=== PATIENT | male | born 1960 | race Caucasian/White ===

== ENCOUNTER 2018-02-20 18:46 | Inpatient (IN) ==
[2018-02-20] MEDS ORDERED: Aspirin 81 MG TAB.CHEW PO ONE (18:59)
[2018-02-20] MEDS ORDERED: *HR* Ticagrelor 90 MG TABLET ONE (18:59)
--- NOTE | 2018-02-20 18:59 | Emergency Department Note ---
Disposition Clinical Impression: Chest pain Qualifiers: Chest pain type: unspecified Qualified Code(s): R07.9 - Chest pain, unspecified ST elevation myocardial infarction (STEMI) Qualifiers: Involved coronary artery: unspecified coronary artery Qualified Code(s): I21.3 - ST elevation (STEMI) myocardial infarction of unspecified site Disposition: Admitted As Inpatient Condition: Fair Time of Disposition: 19:20 Chest Pain HPI - General Chief Complaint: ED Chest Pain Stated Complaint: CP/SAMIA Time Seen by Provider: 02/20/18 18:55 Source: patient Mode of arrival: wheelchair Limitations: no limitations Vital Signs Reviewed: Yes Nursing Notes Reviewed: Yes - History of Present Illness HPI Narrative: Patient is a 57-year-old male with past medical history of diabetes who presented to the ED as a STEMI alert. He presented with chest pain that started 2-3 days ago, described as a constant pressure that radiates up to his bilateral shoulders that has gotten worse over the past few hours. He does admit to pain worsening with exertion, mildly associated shortness of breath. Denies any other nausea, vomiting, fevers, sweating, abdominal pain, diarrhea. Denies any history of any previous VA or stents. Not currently on any blood thinners. Patient was brought back to room after STEMI alert was called by Dr. Wyman who reviewed EKG and noted ST elevation. Severity scale (1-10): 7 - Related Data Home Medications Medication Instructions Recorded Confirmed Atorvastatin [Lipitor] 10 mg PO HS 02/20/18 02/20/18 Insulin DETEMIR [Levemir Flextouch] 60 unit SQ HS 02/20/18 02/20/18 Metformin HCl [Glucophage] 1,000 mg PO BID 02/20/18 02/20/18 SitaGLIPtin [Januvia] 100 mg PO DAILY 02/20/18 02/20/18 Allergies Allergy/AdvReac Type Severity Reaction Status Date / Time No Known Allergies Allergy Verified 02/20/18 18:52 All systems ED: reviewed and negative except as stated. Constitutional: Denies: fever Cardiovascular: Reports: chest pain, dyspnea on exertion Respiratory: Reports: dyspnea. Denies: cough, wheezes Gastrointestinal: Denies: abdominal pain, nausea, vomiting, diarrhea Genitourinary: Denies: urgency, dysuria, frequency Musculoskeletal: Denies: back pain Integumentary: Denies: rash Neurological: Denies: headache, weakness, numbness, paresthesias Chest Pain PMH - Past Medical History Medical history: Reports: diabetes Psychiatric history: Reports: no psych history - Social History Smoking Status: Current every day smoker Alcohol use: Reports: none Drug use: Reports: none Physical Exam - General Limitations: no limitations General appearance: alert, in no apparent distress - Head Head exam: atraumatic, normocephalic, normal inspection - Eye Eye exam: Present: normal appearance, PERRL, EOMI - ENT ENT exam: normal exam, normal oropharynx, mucous membranes moist - Neck Neck exam: Present: normal inspection, full ROM, trachea midline - Chest Chest inspection: Present: normal inspection, symmetric chest wall rise - Respiratory Respiratory exam: Present: normal lung sounds bilaterally - Cardiovascular Cardiovascular exam: Present: normal rhythm, tachycardia, normal heart sounds - Abdominal Exam Abdominal exam: Present: soft, Non-Tender. Absent: tenderness, distention, guarding, rebound, rigidity - Extremities Exam Extremities exam: Present: normal inspection, full ROM. Absent: tenderness, pedal edema - Neurological Exam Neurological exam: Present: alert, oriented X3 - Psychiatric Psychiatric exam: Present: normal affect, normal mood - Skin Skin exam: Present: warm, dry, intact, normal color Course Course Narrative: Mildly tachycardic. Otherwise, the rest of the vitals were within normal limits. EKG review showed: 02/20/2018 at 18:52. Sinus tachycardia. Rate 101. NV 163. QRS 86. QTC 368. Acute ST elevation in lead 1, 2, aVL, V1 through V6. No ST elevation in lead 3 or aVF. NV depression in lead 1, 2. Normal axis. + STEMI anterolateral. Crash cart placed at bedside, pads placed on patient. I talked with retort press operator, Dr. Ofelia Sawyer, she requested that the EKG be faxed to her for review. She called me back a few minutes later and agrees that this is STEMI criteria. Patient was given Brilinta 180 and heparin. Patient stated that he had already taken aspirin 325 mg at home prior to coming in. Patient was transported to [facility] Account Representative for acute intervention. Patient was stable, stable vitals prior to this transfer to the Entry Level Account Representative. Vital Signs Temperature 97.7 F 02/20/18 18:49 Pulse Rate 104 02/20/18 18:49 Respiratory Rate 16 02/20/18 18:49 Blood Pressure 111/66 02/20/18 18:49 O2 Sat by Pulse Oximetry 99 02/20/18 18:49 Temperature 98.8 F 02/21/18 00:18 Pulse Rate 88 02/21/18 01:00 Respiratory Rate 18 02/21/18 01:00 Blood Pressure 99/65 02/21/18 01:00 O2 Sat by Pulse Oximetry 94 02/21/18 01:00 Oxygen Delivery Oxygen Delivery Room Air Chest Pain - MDM Narrative Medical decision making narrative: Mildly tachycardic. Otherwise, the rest of the vitals were within normal limits. EKG review showed: 02/20/2018 at 18:52. Sinus tachycardia. Rate 101. NV 163. QRS 86. QTC 368. Acute ST elevation in lead 1, 2, aVL, V1 through V6. No ST elevation in lead 3 or aVF. NV depression in lead 1, 2. Normal axis. + STEMI anterolateral. Crash cart placed at bedside, pads placed on patient. I talked with retort press operator, Dr. Ofelia Sawyer, she requested that the EKG be faxed to her for review. She called me back a few minutes later and agrees that this is STEMI criteria. Patient was given Brilinta 180 and heparin. Patient stated that he had already taken aspirin 325 mg at home prior to coming in. Patient was transported to Entry Level Account Representative for acute intervention. Patient was stable, stable vitals prior to this transfer to the Entry Level Account Representative. - Medical Records Medical records reviewed: Yes I reviewed the patient's medical records. - Lab Data Lab results reviewed: Yes I reviewed the patient's lab results. Result diagrams: 02/20/18 19:01 02/20/18 19:01 Lab Results 02/20/18 02/20/18 02/20/18 Range/Units 19:01 19:01 19:01 WBC 17.4 H (4.3-11.1) K/mcL RBC 4.85 (4.19-5.50) M/mcL Hgb 15.1 (12.9-16.9) g/dL Hct 43.6 (37.5-50.1) % MCV 89.9 (83.0-100.0) fL MCH 31.1 (28.0-33.3) pg MCHC 34.6 (31.6-35.5) g/dL RDW 12.7 (11.5-14.5) % Plt Count 176 (140-400) K/mcL MPV 11.6 (9.4-12.4) fL Immature Gran % 0.6 (0-4) % Seg Neutrophils % 80.5 % Lymphocytes % 8.2 % Monocytes % 10.4 % Eosinophils % 0.1 % Basophils % 0.2 % Neutrophils # 14.0 H (1.6-8.9) K/mcL Lymphocytes # 1.4 (0.6-4.6) K/mcL Monocytes # 1.8 H (0.0-1.3) K/mcL Eosinophils # 0.0 (0.0-0.6) K/mcL Basophils # 0.0 (0.0-0.2) K/mcL PT 13.7 H (9.4-12.1) Seconds INR 1.3 APTT 29.0 (26.0-36.0) Seconds Sodium 131 L (136-145) mEq/L Potassium 4.2 (3.5-5.1) mEq/L Chloride 97 L (98-107) mEq/L Carbon Dioxide 23 (23-29) mEq/L BUN 25 H (6-20) mg/dL Creatinine 1.31 H (0.70-1.30) mg/dL Est GFR ( Amer) > 60 (> 60) Est GFR (Non-Af Amer) 56 L (> 60) BUN/Creatinine Ratio 19 (6-26) Glucose 403 H (70-105) mg/dL Est Mean Plasma Glucose mg/dl Hemoglobin A1c ( - 5.6) % Calculated Osmolality 293 (280-300) Calcium 9.3 (8.6-10.3) mg/dL Magnesium 1.6 (1.6-2.6) mg/dL Troponin I 41.16 H* (< 0.04) ng/mL 02/20/18 Range/Units 19:01 WBC (4.3-11.1) K/mcL RBC (4.19-5.50) M/mcL Hgb (12.9-16.9) g/dL Hct (37.5-50.1) % MCV (83.0-100.0) fL MCH (28.0-33.3) pg MCHC (31.6-35.5) g/dL RDW (11.5-14.5) % Plt Count (140-400) K/mcL MPV (9.4-12.4) fL Immature Gran % (0-4) % Seg Neutrophils % % Lymphocytes % % Monocytes % % Eosinophils % % Basophils % % Neutrophils # (1.6-8.9) K/mcL Lymphocytes # (0.6-4.6) K/mcL Monocytes # (0.0-1.3) K/mcL Eosinophils # (0.0-0.6) K/mcL Basophils # (0.0-0.2) K/mcL PT (9.4-12.1) Seconds INR APTT (26.0-36.0) Seconds Sodium (136-145) mEq/L Potassium (3.5-5.1) mEq/L Chloride (98-107) mEq/L Carbon Dioxide (23-29) mEq/L BUN (6-20) mg/dL Creatinine (0.70-1.30) mg/dL Est GFR ( Amer) (> 60) Est GFR (Non-Af Amer) (> 60) BUN/Creatinine Ratio (6-26) Glucose (70-105) mg/dL Est Mean Plasma Glucose 246 mg/dl Hemoglobin A1c 10.2 H ( - 5.6) % Calculated Osmolality (280-300) Calcium (8.6-10.3) mg/dL Magnesium (1.6-2.6) mg/dL Troponin I (< 0.04) ng/mL - Radiology Data Radiology results reviewed: Yes I reviewed the patient's radiology results. Chest X-Ray 02/20/18 18:59 IMPRESSION: No acute process. D/ / Primitivo Reed MD / Primitivo Reed MD Interpreting Provider: Primitivo Reed MD - EKG Data EKG attestation: Yes I reviewed and interpreted this EKG. EKG results narrative: 02/20/2018 at 18:52. Sinus tachycardia. Rate 101. NV 163. QRS 86. QTC 368. Acute ST elevation in lead 1, 2, aVL, V1 through V6. No ST elevation in lead 3 or aVF. NV depression in lead 1, 2. Normal axis. + STEMI anterolateral. Attestation Statement - Attestation Attestation: I, Nilesh Mcgregor DO, examined this patient [id number] and my medical decision-making was reviewed with Dr. Tr Burt, Resident Physician. I agree with the documented findings, disposition and treatment plan as described except to the extent set forth below. Please see my progress notes for details.
[2018-02-20] MEDS ORDERED: Aspirin 81 MG TAB.CHEW ONE (19:00)
[2018-02-20] MEDS ORDERED: *HR* Heparin 5,000 UNIT/ML VIAL ONE (19:00)
[2018-02-20] MEDS ORDERED: 0.9 % Sodium Chloride 1,000 ML ONE ×3 (19:00→21:46)
[2018-02-20] MEDS ORDERED: *HR* Heparin 5,000 UNIT/ML VIAL IVP ONE (19:04)
[2018-02-20] MEDS ORDERED: *HR* Heparin 5,000 UNIT/ML VIAL IVP PRN ×2 (19:04)
[2018-02-20] MEDS ORDERED: *HR* Ticagrelor 90 MG TABLET PO ONE (19:05)
[2018-02-20] MEDS ORDERED: Heparin 1,000 UNITS/500 mL 500 ML ONE (19:07)
[2018-02-20] MEDS ORDERED: Nitroglycerin 1,000 MCG/10 ML VIAL IV ONE ×2 (19:07→19:59)
[2018-02-20] MEDS ORDERED: *HR* Heparin 10,000 UNIT/10 ML VIAL ONE (19:07)
[2018-02-20] MEDS ORDERED: ISOVUE-370 200 ML INFUS..BTL IV ONE (19:07)
[2018-02-20] MEDS ORDERED: *HR* FentaNYL (PF) 100 MCG/2 ML VIAL ONE (19:08)
[2018-02-20] MEDS ORDERED: *HR* Midazolam HCl 2 MG/2 ML VIAL ONE (19:08)
[2018-02-20] MEDS ORDERED: *HR* Bivalirudin 250 MG VIAL IVC ONE (19:08)
[2018-02-20 19:14] LABS: Basophils % 0.2 %; Eosinophils % 0.1 %; Hematocrit 43.6 % (37.5-50.1); Hemoglobin 15.1 g/dL (12.9-16.9); Immature Granulocytes % 0.6 % (0-4); Lymphocytes # 1.4 K/mcL (0.6-4.6); Lymphocytes % 8.2 %; Mean Corpuscular HGB Conc 34.6 g/dL (31.6-35.5); Mean Corpuscular Hemoglobin 31.1 pg (28.0-33.3); Mean Corpuscular Volume 89.9 fL (83.0-100.0); Mean Platelet Volume 11.6 fL (9.4-12.4); Monocytes # 1.8 K/mcL (0.0-1.3); Monocytes % 10.4 %; Platelet Count 176 K/mcL (140-400); Red Blood Count 4.85 M/mcL (4.19-5.50); Red Cell Distribution Width 12.7 % (11.5-14.5); Segmented Neutrophils % 80.5 %
[2018-02-20] MEDS ORDERED: Heparin 25,000 UNIT/500 ML D5W 25,000 UNIT/500 ML BAG IVC SCH (19:15)
--- NOTE | 2018-02-20 19:19 | Emergency Department Note ---
Disposition Clinical Impression: Chest pain, ST elevation myocardial infarction (STEMI) Disposition: Admitted As Inpatient Condition: Fair Forms: ED Satisfaction Letter Time of Disposition: 19:20 General Adult HPI - General Chief complaint: ED Chest Pain Stated complaint: CP/SAMIA Time Seen by Provider: 02/20/18 18:55 Source: patient Mode of arrival: wheelchair Limitations: no limitations - History of Present Illness Pain Scale: 7 - Related Data Home Medications Medication Instructions Recorded Confirmed Atorvastatin [Lipitor] 10 mg PO HS 02/20/18 02/20/18 Insulin DETEMIR [Levemir Flextouch] 60 unit SQ HS 02/20/18 02/20/18 Metformin HCl [Glucophage] 1,000 mg PO BID 02/20/18 02/20/18 SitaGLIPtin [Januvia] 100 mg PO DAILY 02/20/18 02/20/18 Allergies Allergy/AdvReac Type Severity Reaction Status Date / Time No Known Allergies Allergy Verified 02/20/18 18:52 Past Medical History - Past Medical History Medical history: Reports: diabetes Psychiatric history: Reports: no psych history - Social History Smoking Status: Current every day smoker Alcohol use: Reports: none Drug use: Reports: none Physical Exam - General Limitations: no limitations General appearance: alert, in no apparent distress Course Vital Signs Temperature 97.7 F 02/20/18 18:49 Pulse Rate 104 02/20/18 18:49 Respiratory Rate 16 02/20/18 18:49 Blood Pressure 111/66 02/20/18 18:49 O2 Sat by Pulse Oximetry 99 02/20/18 18:49 Temperature 97.7 F 02/20/18 18:49 Pulse Rate 97 02/20/18 19:08 Respiratory Rate 16 02/20/18 19:08 Blood Pressure 121/66 02/20/18 19:08 O2 Sat by Pulse Oximetry 96 02/20/18 19:08 Oxygen Delivery Oxygen Delivery Room Air Medical Decision Making - Lab Data Result diagrams: 02/20/18 19:01 Lab Results 02/20/18 Range/Units 19:01 WBC 17.4 H (4.3-11.1) K/mcL RBC 4.85 (4.19-5.50) M/mcL Hgb 15.1 (12.9-16.9) g/dL Hct 43.6 (37.5-50.1) % MCV 89.9 (83.0-100.0) fL MCH 31.1 (28.0-33.3) pg MCHC 34.6 (31.6-35.5) g/dL RDW 12.7 (11.5-14.5) % Plt Count 176 (140-400) K/mcL MPV 11.6 (9.4-12.4) fL Immature Gran % 0.6 (0-4) % Seg Neutrophils % 80.5 % Lymphocytes % 8.2 % Monocytes % 10.4 % Eosinophils % 0.1 % Basophils % 0.2 % Neutrophils # 14.0 H (1.6-8.9) K/mcL Lymphocytes # 1.4 (0.6-4.6) K/mcL Monocytes # 1.8 H (0.0-1.3) K/mcL Eosinophils # 0.0 (0.0-0.6) K/mcL Basophils # 0.0 (0.0-0.2) K/mcL Attestation Statement - Attestation Attestation: I, Nilesh Mcgregor DO, examined this patient [id number] and my medical decision-making was reviewed with Dr. Tr Burt, Resident Physician. I agree with the documented findings, disposition and treatment plan as described except to the extent set forth below. Please see my progress notes for details. 57-year-old male presents to the emergency room 2 days worth of chest pain. Symptoms of been on and off. They never fully gone away but they had different events with a been acutely worse. Patient had EKG collect in the triage process. It is consistent with a ST segment elevation myocardial infarction. The reviewing physician called a STEMI at that time. The EKG was reviewed with the on-call needle loom operator Dr. Ofelia Sawyer. She agreed with the diagnosis. Patient had immediate evaluation with chest x-ray and screening physical exam along with confirmation that he does not have any history of melanoma GI bleed or being on any blood thinners at this point. Patient does not have any signs of widened mediastinum. IV access was obtained 2 peripheral IVs. Patient also was given brilinta and heparin. Patient had a screening labs ordered at this time. Patient was transported to the catheterization lab at this point under the care of the catheterization team. Vital signs are stable patient is in no specific distress. Intervention to be completed this time. No critical care applied. See detailed documentation of the physical exam, medical intervention, medical decision-making and disposition in the resident physician' s note.
[2018-02-20 19:24] LABS: INR 1.3; Prothrombin Time 13.7 Seconds (9.4-12.1)
[2018-02-20 19:39] LABS: BUN/Creatinine Ratio 19 (6-26); Blood Urea Nitrogen 25 mg/dL (6-20); Calcium 9.3 mg/dL (8.6-10.3); Carbon Dioxide 23 mEq/L (23-29); Chloride 97 mEq/L (98-107); Glucose 403 mg/dL (70-105); Magnesium 1.6 mg/dL (1.6-2.6); Osmolality,Calculated 293 (280-300); Potassium 4.2 mEq/L (3.5-5.1); Sodium 131 mEq/L (136-145); eGFR For African Americans > 60 (> 60); eGFR For Non-African Americans 56 (> 60)
[2018-02-20 19:42] LABS: Troponin I 41.16 ng/mL (< 0.04)
[2018-02-20] MEDS ORDERED: Ondansetron 4 MG/2 ML VIAL IVP PRN (20:31)
[2018-02-20] MEDS ORDERED: Furosemide 40 MG/4 ML VIAL IVP ONE (20:31)
[2018-02-20] MEDS ORDERED: Nitroglycerin 0.4 MG TAB.SUBL SL PRN (20:31)
[2018-02-20] MEDS ORDERED: *HR* Dextrose 50 % in Water (Syg) 50 ML SYRINGE IVP PRN (20:37)
[2018-02-20] MEDS ORDERED: Dextrose Gel 15 GM PO PRN ×2 (20:37)
[2018-02-20] MEDS ORDERED: D5% in Water 1,000 ML IVC PRN (20:37)
--- NOTE | 2018-02-20 20:39 | Invasive Diagnostic Lab Proc ---
Name: Erasto Yin Date of Study: 02/20/2018 Date: 1960 Ht: 74.0in Medical Record#: [id number] Age: 57 Wt: 198.42lb Gender: Male BSA: 2.17 Order #: [id number] BMI: 25.46 Physicians Procedure Physician: Ofelia Sawyer MD, FACC Referring MD: Referring MD: Staff Name Position [facility] Monitor 07:22 PM Elsa Angelo RN Kindergarten Paraprofessional 07:22 PM [facility], [place] RT (R) Scrub 07:22 PM Indications Indication STEMI Procedures Performed Procedure L HRT ARTERY/VENTRICLE ANGIO PRQ CARD QUINTIN STENT W/ANGIO 1 VSL Pre-Procedure Checklist Informed consent is complete signed and on chart. H&P is on chart. ID band is on and ID verified with patient. Patient NPO for procedure The procedure was described for the patient and questions were answered. Blood Pressure: 121/66 ECG is on chart. Rhythm: Sinus Tachycardia Plan of Care Patient will tolerate the procedure without complications. Adequate level of comfort will be maintained. Hemodynamics will remain stable Patient will recover from procedure without complications. Respiratory function will be maintained. Cardiac rhythm will remain stable. Patient temperature will be maintained. Patient and/or family have verbalized understanding of the procedure. Patient Education Chief Complaint/Reason for Test: Cardiac Cath Developmental Category: Adult (18-64 years) Developmentally Appropriate for Age: Yes Learning Barriers: None Education Needs: Plan of Care Education Method: Verbal Information Taught: Cardiac Cath Educational Evaluation: Able to repeat information Intravenous Access Time IV Size Location DC'd Fluid/Drip Rate Units RN 07:38 PM 16g Lt Arm Elsa Angelo RN 07:39 PM 18g 1 1/" Patent On Arrival Rt Antecubital Elsa Angelo RN Allergies No Known Allergies Vital Signs Time BP (mmHg) HR (bpm) O2 Sat. RR (bpm) LOC 07:29 PM / % 5 = Fully awake and oriented or at pre-proc level 07:33 PM / % 5 = Fully awake and oriented or at pre-proc level 07:33 PM / % 4 = Oriented but drowsy 07:49 PM / % 4 = Oriented but drowsy 07:29 PM 143 / 76 96 97 % 12 07:33 PM 118 / 68 109 93 % 24 07:38 PM 121 / 64 99 93 % 31 07:43 PM 121 / 65 94 97 % 25 07:47 PM 122 / 70 94 97 % 23 07:53 PM 110 / 62 96 94 % 19 07:58 PM 128 / 65 100 95 % 21 08:03 PM 128 / 69 98 95 % 23 08:08 PM 135 / 77 99 95 % 12 08:13 PM 133 / 75 100 96 % 23 Procedural Medications Time Medication Dose Units Method Given By 07:29 PM Versed 2 mg Intravenous Elsa Angelo RN 07:29 PM Fentanyl 50 mcg Intravenous Elsa Angelo RN 07:30 PM Lidocaine 2% 20 ml Subcutaneous ofelia sawyer 07:36 PM Heparin 1000 units Intravenous Elsa Angelo RN 07:50 PM Nitroglycerin 200 mcg Intracoronary Ofelia Sawyer MD, FACC 07:23 PM Oxygen 4 L/min nasal cannula Elsa Angelo RN 07:51 PM Nitroglycerin 200 mcg Intracoronary Ofelia Sawyer MD, FACC 07:58 PM Nitroglycerin 200 mcg Intracoronary Ofelia Sawyer MD, FACC 08:26 PM Heparin 1000 units Intravenous Elsa Angelo RN ASA Classification: CLASS II- Mild systemic disease (i.e. well-controlled diabetes, hypertension, asthma, cigarette smoking) Michael Score Preprocedure Postprocedure Activity 2- Moves 4 extremities sustained head lift Activity 2- Moves 4 extremities sustained head lift Circulation 2- SBP +/= 20 points of pre-anesthetic level Circulation 2- SBP +/= 20 points of pre-anesthetic level Consciousness 2- Awake and alert oriented x 3 Consciousness 2- Awake and alert oriented x 3 O2 Saturation 2- Able to maintain O2 satruation of 92% on room air O2 Saturation 2- Able to maintain O2 satruation of 92% on room air Respiratory 2- Able to deep breathe and cough well Respiratory 2- Able to deep breathe and cough well Total Score 10 Total Score 10 Contrast Agent: Isovue Diagnostic Contrast: 220 ml Total Contrast: 220 ml Fluoro Dose: 782 mGy Activated Clotting Time Time Seconds to Clot 07:35 PM 231 07:55 PM 278 08:14 PM 202 Procedure Log Time Note Enter By 07:22 PM Pt arrived to sugar laboratory assistant 2 at 19:22 carlos 07:22 PM Deborah Samson RN Position: Monitor Time in: 19:22 ky: PM Elsa Angelo RN Position: Kindergarten Paraprofessional Time in: dspzakiya: PM [place] Canela RT (R) Position: Scrub Time in: dsp: PM Patient charges- Angio tray pack, Navilyst 3mm J, Pulse Oximetry and ACIST tubing and transducer dspell: PM Case Delayed No dspell PM Hair removed from procedure site in procedure lab using clippers. Bilateral groin prepped with Chloraprep by [place] Canela RT (R), then patient was draped. Skin intact. dsp: PM Physican paged/called :. dspell: PM Physican responded and notified patient is ready dspell: PM Physician arrived : dspell: PM Meet and greet completed dspell: PM Sign in performed according to hospital policy. dspell: PM Sign in performed according to hospital policy. : PM Procedure start dsp: PM Time: Oxygen on at 4 L/min per nasal cannula by Elsa Angelo RN tsouanson 07: PM CathStat : PM Vitals capture started with the following parameters, Patient=Adult, Interval=5 min, Initial Fsevjsbg=967 mmHg, Deflation Rate=3 mmHg, Cuff placed on Right Arm 07: PM HR=96 bpm, LZMC=337/76 mmhg, SpO2=97.0 %, Resp=12 B/min : PM Recorded ECG: HR=96 Condition=Condition 1 : PM Time: Versed 2 mg Intravenous Given by Elsa Angelo RN PM Time: Fentanyl 50 mcg Intravenous Given by Elsa Angelo RN PM Time: Patient comfortable and pain free: Yes dsp PM Time: LOC: 5 = Fully awake and oriented or at pre-proc level dspell: PM Pressure channel 1 zeroed. 07:30 PM Clinical Presentation: STEMI or equivalent dspell:30 PM Time out performed according to hospital policy dspellman 07:30 PM Time: 19:30 20 ml Lidocaine 2% to right groin Subcutaneous Given by ofelia sawyer 07:30 PM Micro-Introducer Kit utilized for sheath placement 07:30 PM Access obtained by percutaneous puncture. 6Fr 10cm [facility] [place] sheath placed in right Femoral artery. [id number] 07:30 PM 0.035 145cm Navilyst 3mmJ wire [id number] 07:30 PM Inflation device was opened. 07:31 PM 6Fr XB LAD 3.5 [place] Bright-Tip guide catheter was used to cannulate the PCI vessel successfully. reused? No :31 PM j wire removed : PM 0.035 145cm VSI [place]-Torque wire [id number] 07:32 PM Recorded Pressure: Ao, HR=95, Condition=Condition 1 (Aorta) Ao 72/31/48 07:32 PM wire removed :32 PM LCA angiography performed in multiple views. 07:33 PM YY=440 bpm, CCXE=645/68 mmhg, SpO2=93.0 %, Resp=24 B/min 07:33 PM Time: 19:33 Patient comfortable and pain free: Yes :33 PM Time: 19:33LOC: 5 = Fully awake and oriented or at pre-proc level 07:34 PM Lesion found in Proximal LAD. Pre Stenosis: 100 Pre MARII Flow: 0: No Flow/No perfusion 07:34 PM Proximal Left Anterior Descending Coronary Artery with 100% stenosis. If graft is supplying this territory, 0 % stenosis. 07:34 PM .014 Prowater 180cm guide wire across target lesion- successful. reused? No. In First Diagonal 07:34 PM Recorded Pressure: Ao, HR=99, Condition=Condition 1 (Aorta) Ao 93/54/72 07:36 PM At 19:35 the ACT was 231 seconds. 07:36 PM 2.0 mm x 15 mm Emerge Monorail balloon across target lesion- successful. reused? No mm 07:36 PM Time: 19:36 Heparin 1000 units Intravenous Given by Elsa Angelo RN tsoummers 07:37 PM Balloon inflated @ 8 gaby for 20 seconds tsoummers 07:38 PM Balloon inflated @ 8 gaby for 20 seconds tsoummers 07:38 PM HR=99 bpm, THZR=794/64 mmhg, SpO2=93.0 %, Resp=31 B/min 07:38 PM Balloon inflated @ 12 gaby for 20 seconds tsoummers 07:39 PM Recorded Pressure: Ao, HR=96, Condition=Condition 1 (Aorta) Ao 89/54/72 07:42 PM Balloon catheter removed intact. tsoummers 07:42 PM .014 PT Graphix 182cm guide wire across target lesion- successful. reused? No. in the LAD tsoummers 07:43 PM HR=94 bpm, GFEQ=059/65 mmhg, SpO2=97.0 %, Resp=25 B/min 07:44 PM 2.0 mm x 15 mm Emerge Monorail balloon across target lesion- successful. reused? No. Over the PT graphix guide wire. tsoummers 07:45 PM Balloon inflated @ 8 gaby for 20 seconds tsoummers 07:46 PM Balloon inflated @ 12 gaby for 20 seconds tsoummers 07:47 PM NIBP STAT measurement started. 07:47 PM Balloon inflated @ 8 gaby for 20 seconds tsoummers 07:47 PM Balloon inflated @ 8 gaby for 20 seconds tsoummers 07:47 PM HR=94 bpm, JMCP=746/70 mmhg, SpO2=97.0 %, Resp=23 B/min 07:49 PM Balloon inflated @ 14 gaby for 20 seconds tsoummers 07:49 PM Time: 19:33LOC: 4 = Oriented but drowsy tsoummers 07:49 PM Time: 19:33 Patient comfortable and pain free: Yes tsoummers 07:49 PM Balloon catheter removed intact. tsoummers 07:50 PM Time: 19:50 Nitroglycerin 200 mcg Intracoronary Given by Ofelia Sawyer MD, [facility] tsoummchrist 07:52 PM Time: 19:51 Nitroglycerin 200 mcg Intracoronary Given by Ofelia Sawyer MD, [facility] tsoummers 07:53 PM HR=96 bpm, UHYI=744/62 mmhg, SpO2=94.0 %, Resp=19 B/min 07:54 PM 2.25mm x 20mm Synergy drug-eluting stent across target lesion- successful Lot #[id number] oumm 07:55 PM At 19:55 the ACT was 278 seconds. tsoumm 07:55 PM Prowater removed intact tsoumm 07:56 PM Stent deployed @ 11 gaby for 30 seconds tsoumm 07:57 PM Stent balloon reinflated @ 12 gaby for 15 seconds tsoumm 07:57 PM Stent delivery system removed intact. tsoummers 07:58 PM JF=685 bpm, DHJX=353/65 mmhg, SpO2=95.0 %, Resp=21 B/min 07:58 PM Time: 19:58 Nitroglycerin 200 mcg Intracoronary Given by Ofelia Sawyer MD, [facility] tsoummers 08:00 PM Guide wire removed intact. tsoumm 08:01 PM Guide catheter removed intact. tsoumm 08:02 PM Time: 19:49LOC: 4 = Oriented but drowsy tsoummers 08:03 PM Recorded Pressure: Ao, HR=98, Condition=Condition 1 (Aorta) Ao 98/60/78 08:03 PM HR=98 bpm, GUHS=401/69 mmhg, SpO2=95.0 %, Resp=23 B/min 08:03 PM 0.035 260cm Navilyst 3mmJ wire [id number] oumm 08:04 PM Time: 19:49 Patient comfortable and pain free: Yes tsoumm 08:04 PM 5Fr FR 4 catheter inserted over the wire [facility] oummchrist 08:04 PM Jwire removed tsoummchrist 08:04 PM RCA angiography performed in multiple views. tsoumm 08:05 PM Pressure channel 1 zero failed. 08:05 PM Pressure channel 1 zeroed. 08:05 PM Recorded Pressure: LV, HR=99, Condition=Condition 1 (Left Ventricle) LV 100/20/23 08:05 PM Catheter removed tsoummchrist 08:05 PM Recorded Pressure: LV, Ao, HR=99, Condition=Condition 1 (Left Ventricle) LV 95/29/30, (Aorta) Ao 105/77/91 08:06 PM 5Fr Pigtail catheter inserted over the wire [facility] 08[facility] PM Catheter selectively placed in left ventricle tsoummchrist 08:06 PM Bolus angiogram of left Ventricle complete: 8 ml/sec for a total of 24 mls tsoummers 08:06 PM [facility]ter [facility] 08:07 PM Bolus angiogram of right Femoral complete: 2 ml/sec for a total of 4 mls tsoummers 08:08 PM HR=99 bpm, XBVX=336/77 mmhg, SpO2=95.0 %, Resp=12 B/min 08:08 PM Procedure completed at 20:08 tsoummers 08:08 PM Did you address MARII flow and Dominance? Yes tsoummers 08:09 PM Sign out completed: Radiation Dose 781.83 mGy Fluoro Time: 11.4 Isovue 370 - 200ml contrast 220 ml given by Ofelia Sawyer MD, [facility]. Complications: NoneCardiac Rehab Consult needed: YesConfirmed administered medications: Yes [facility] 08:09 PM Isovue 370 - 200ml,2 Bottle(s) used. [facility] 08:09 PM Sheath left in place to be pulled on floor/holding area tsoummers 08:09 PM Estimated Blood Loss: minimal tsoummers 08:09 PM Post ECG NSR tsoummers 08:09 PM Post Blood Pressure 135/77 tsoummers 08:09 PM Information taught Cardiac Cath and PCI [facility] 08:10 PM Education needs Procedure, Plan of Care, and Responsibilities of Patient in Care tsoummers 08:10 PM Learning barriers :None [facility] 08:10 PM Education Methods Verbal [facility] 08:10 PM Education evaluation Able to repeat information [facility] 08:10 PM Site status No bleeding/hematoma - Rt Groin as reported by Sites, [place] RT (R) at 20:10 tsoummers 08:10 PM Opsite applied [facility] 08:10 PM Plavix, Effient or Brilinta given Yes. 180mg brilinta given in ED tsoummers 08:13 PM Delay to floor No tsoummers 08:13 PM Family placed in consult room. tsoummers 08:13 PM Complications: None tsoummers 08:13 PM Fluoro Time: 11.4 tsoummers 08:13 PM BS=980 bpm, MXKQ=418/75 mmhg, SpO2=96.0 %, Resp=23 B/min 08:13 PM Isovue 370 - 200ml contrast 220 ml given by Ofelia Sawyer. tsoummers 08:13 PM Radiation Dose 781.83 mGy tsoummers 08:14 PM At 20:14 the ACT was 202 seconds. tsoummers 08:17 PM Report given to Marleny GARCIA Pt taken to ICU Room #10. 20:16 tsoummers 08:17 PM Coronary Dominance: right tsoummers 08:18 PM Lesion found in Proximal RCA. Pre Stenosis: 30 Pre MARII Flow: tsoummers 08:18 PM Lesion found in Mid RCA. Pre Stenosis: 40 Pre MARII Flow: tsoummers 08:18 PM Lesion found in Distal RCA. Pre Stenosis: 30 Pre MARII Flow: tsoummers 08:18 PM Lesion found in LMCA. Pre Stenosis: 30 Pre MARII Flow: tsoummers 08:18 PM Lesion found in 1st Diagonal. Pre Stenosis: 70 Pre MARII Flow: tsoummers 08:18 PM Lesion found in Proximal Circumflex. Pre Stenosis: 40 Pre MARII Flow: tsoummers 08:19 PM Lesion found in 2nd Marginal. Pre Stenosis: 95 Pre MARII Flow: tsoummers 08:19 PM Lesion found in Right PDA. Pre Stenosis: 95 Pre MARII Flow: tsoummers 08:19 PM Left Main Coronary Artery with 30% stenosis tsoummers 08:19 PM Mid/Distal Left Anterior Descending Coronary Artery and diagonal branches with 70% stenosis. If graft is supplying this area, 0 % stenosis tsoummers 08:19 PM Circumflex, Obtuse Marginal, Left Posterior Descending, and Left Posterolateral Coronary Arteries with 95 % stenosis. If graft is supplying this area, 0 % stenosis tsoummers 08:19 PM Right Coronary, Right Posterior Descending Arteries with Right Posterolateral and Acute Marginal branches with 95 % stenosis. If graft is supplying this area, 0 % stenosis tsoummers 08:25 PM Patient out of room: 20:25 tsoummers 08:26 PM Time: 20:26 Heparin 1000 units Intravenous Given by Elsa Angelo RN tsaleahmmchrist 08:27 PM ASA Class CLASS II- Mild systemic disease (i.e. well-controlled diabetes, hypertension, asthma, cigarette smoking) tsoummers Complications Complication None Hemodynamics Pressures Site Systolic/A Wave Diastolic/V Wave Mean AO 72 31 48 AO 93 54 72 AO 89 54 72 AO 98 60 78 LV 100 20 23 LV 95 29 30 AO 105 77 91 Post Procedure Information Blood Pressure: 135/77 mmHg Rhythm: NSR Post procedural instructions were given Site Checks Time Location Status Staff Sheath In? Note 08:10 PM Rt Groin No bleeding/hematoma Sites, [place] RT (R) Pulses Updated by Deborah Samson RN on 02/20/2018 8:30:15 PM electronically signed on 02/20/2018 8:30:40 PM with status of Final
--- NOTE | 2018-02-20 20:42 | Cardiology History & Physical ---
Date of Encounter: 02/20/18 Time of Encounter: 19:15 Assessment and Plan (1) ST elevation myocardial infarction (STEMI) Current Visit: Yes Status: Acute Pt is currently experiencing acute anterolateral STEMI. Will proceed emergently to cardiac catheterization lab for LHC +/- PCI. All risks/benefits discussed by me with patient. Further recommendations pending results. The assessment and plan as outlined above was discussed with the patient and/or family members who expressed understanding and agreement. All questions were answered. Qualifiers: Qualified Code(s): I21.02 - ST elevation (STEMI) myocardial infarction involving left anterior descending coronary artery (2) Hyperlipidemia Current Visit: No Status: Chronic Statin therapy. Qualifiers: Hyperlipidemia type: unspecified Qualified Code(s): E78.5 - Hyperlipidemia , unspecified (3) Tobacco use Current Visit: Yes Status: Chronic Smoking cessation. (4) Diabetes mellitus Current Visit: No Status: Chronic Qualifiers: Diabetes mellitus type: type 2 Diabetes mellitus halfway insulin use: with manager terminal use Diabetes mellitus complication status: without complication Qualified Code(s): E11.9 - Type 2 diabetes mellitus without complications; Z79.4 - detention (current) use of insulin; Z79.4 - detention ( current) use of insulin; Z79.4 - detention (current) use of insulin; Z79.4 - detention (current) use of insulin History of Present Illness Chief complaint: chest pain HPI: Mr. Yin is a 57 year old male with DM, hyperlipidemia presents to [place] ED with c/o CP. Pt was in baseline state of health until Monday when had acute onset of SSCP radiating to neck and arms b/l. Associated with SOB. 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 Symptoms persisted throughout day on Monday and Monday. Was not able to lie flat due to dyspnea, chest pressure. Symptoms worsened today and at urging of his , presented to ED for further evaluation/tx. Upon arrival to ED, EKG performed which was consistent with acute anterolateral STEMI. Pt denies prior cardiac history, testing. 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 - Family History Father Living Status: Hx Family Cardiac Disorders: Yes Medications and Allergies Atorvastatin [Lipitor] 10 mg PO HS 02/20/18 [History] Insulin DETEMIR [Levemir Flextouch] 60 unit SQ HS 02/20/18 [History] Metformin HCl [Glucophage] 1,000 mg PO BID 02/20/18 [History] SitaGLIPtin [Januvia] 100 mg PO DAILY 02/20/18 [History] 3 Allergy/AdvReac Type Severity Reaction Status Date / Time No Known Allergies Allergy Verified 02/20/18 18:52 ROS unobtainable: other (emergency) All Systems Review: The remainder of the systems were reviewed and are negative - Cardiovascular Cardiovascular: as per HPI Physical Examination General: Other (mild distress appears uncomfortable) HEENT: Atraumatic, Normocephaly, Mucus Membranes Moist Neck: No JVD, Normal carotid pulses Cardiac: Reg Rate and Rhythm, Normal S1 and S2, No Murmur Lungs: Normal Breath Sounds, No Wheeze, Rales, Rhonchi Neuro: Alert and responsive, No focal deficits noted Abdomen: Soft, Non-Tender Skin: No rashes noted on visualized skin Musculoskeletal: No Chest Wall Tenderness Extremities: No Clubbing, No Cyanosis, No Edema, Normal Pulses Results 02/20/18 19:01 02/20/18 19:01 - EKG Interpretation EKG results cardiology: personally reviewed (as per HPI) - VTE Reasons for not Prescribing Prophylaxis: Not indicated-Anticoagulated or INR therapeutic
[2018-02-20 21:35] LABS: Estimated Average Glucose 246 mg/dl; Hemoglobin A1C 10.2 %
[2018-02-20] MEDS ORDERED: *HR* Atropine Sulfate 1 MG/10 ML SYRINGE ONE (21:46)
[2018-02-20] MEDS: Insulin LISPRO 300 UNITS/3 ML VIAL SQ SCH (22:15)
[2018-02-21 03:22] LABS: Basophils % 0.2 %; Hematocrit 39.9 % (37.5-50.1); Hemoglobin 14.1 g/dL (12.9-16.9); Immature Granulocytes % 0.6 % (0-4); Lymphocytes % 6.6 %; Mean Corpuscular HGB Conc 35.3 g/dL (31.6-35.5); Mean Corpuscular Hemoglobin 31.3 pg (28.0-33.3); Mean Corpuscular Volume 88.7 fL (83.0-100.0); Mean Platelet Volume 11.3 fL (9.4-12.4); Monocytes # 1.8 K/mcL (0.0-1.3); Monocytes % 11.2 %; Neutrophils # 12.8 K/mcL (1.6-8.9); Platelet Count 132 K/mcL (140-400); Red Cell Distribution Width 12.6 % (11.5-14.5); Segmented Neutrophils % 81.4 %
[2018-02-21 03:50] LABS: BUN/Creatinine Ratio 23 (6-26); Blood Urea Nitrogen 24 mg/dL (6-20); Calcium 8.8 mg/dL (8.6-10.3); Carbon Dioxide 22 mEq/L (23-29); Chloride 100 mEq/L (98-107); Chol/HDL Ratio 2.7 (0-4.9); Cholesterol 115 mg/dL (< 200); Glucose 343 mg/dL (70-105); HDL Cholesterol 42 mg/dL (40-59); LDL Cholesterol,Calculated 60 mg/dL (0-99); Osmolality,Calculated 290 (280-300); Potassium 4.1 mEq/L (3.5-5.1); Sodium 131 mEq/L (136-145); Triglycerides 65 mg/dL (< 150); eGFR For African Americans > 60 (> 60); eGFR For Non-African Americans > 60 (> 60)
[2018-02-21 03:59] LABS: Troponin I 46.87 ng/mL (< 0.04)
[2018-02-21] MEDS: Insulin LISPRO 300 UNITS/3 ML VIAL SQ SCH ×4 (07:54→20:47)
[2018-02-21] MEDS: *HR* SitaGLIPtin 100 MG TABLET PO SCH (07:54)
[2018-02-21] MEDS: Aspirin 81 MG TAB.CHEW PO SCH (07:55)
--- NOTE | 2018-02-21 12:46 | Cardiology Progress Note ---
Date of Encounter: 02/21/18 Time of Encounter: 08:30 Assessment and Plan (1) ST elevation myocardial infarction (STEMI) Current Visit: Yes Status: Acute S/p acute anterolateral STEMI. Troponin up to 46.86. Emergent cardiac catheterization revealed severe stenosis in the proximal LAD with thrombus. S/P PTCA and QUINTIN to pLAD. There was no complication from the procedure. Denies recurrent chest pain. No complications from right femoral access site. Importance of DAPT with asa and plavix uninterrupted for minimum of one year discussed and he voiced understanding. Continue statin and BB. Telemetry review shows SR with BBB. No VT. Avg HR 96 bpm. Check TTE. Step-down to telemetry later today. Smoking cessation discussed. Cardiac rehab ordered. 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 Doing well. Denies need for NRT currently. Discussion w patient/family: The assessment and plan as outlined above was discussed with the patient and/or family members who expressed understanding and agreement. All questions were answered. Thank you for involving us in the care of your patient. Please call with any questions. Subjective Principal diagnosis: Acute anterior NM Interval history: Mr. Yin reports he is doing well. He feels some pain when taking deep inspiration. Denies SOB. Denies orthopnea, PND or edema. Objective Vital Signs, Last 4 Hours Pulse Resp BP Pulse Ox 02/21/18 12:00 86 12 106/70 97 02/21/18 11:00 87 14 101/64 95 02/21/18 10:00 89 22 99/71 96 02/21/18 09:00 90 15 103/68 95 General: Conversant, No Apparent Distress HEENT: Atraumatic, Normocephaly, Mucus Membranes Moist Neck: No JVD, Normal carotid pulses Cardiac: Reg Rate and Rhythm, Normal S1 and S2, No Murmur Lungs: Normal Breath Sounds, No Wheeze, Rales, Rhonchi Neuro: Alert and responsive, No focal deficits noted Abdomen: Soft, Non-Tender Skin: No rashes noted on visualized skin Musculoskeletal: No Chest Wall Tenderness Extremities: No Clubbing, No Cyanosis, No Edema, Normal Pulses, Other (Right femoral access site without hematoma. ) Results 02/21/18 03:13 02/21/18 03:13 Lab Results 02/21/18 02/21/18 03:13 03:13 WBC 15.7 H Hgb 14.1 Hct 39.9 Plt Count 132 L Sodium 131 L Potassium 4.1 Chloride 100 Carbon Dioxide 22 L BUN 24 H Creatinine 1.05 Glucose 343 H Calcium 8.8 Troponin I 46.87 H* - Imaging and Cardiology Echo: pending - EKG Interpretation EKG results cardiology: personally reviewed - VTE Reasons for not Prescribing Prophylaxis: Not indicated-Anticoagulated or INR therapeutic Consult Discharge Plan - Plan Referrals: Anny Velez MD [Primary Care Provider] -
--- NOTE | 2018-02-21 18:13 | Electrocardiograph Report ---
[address] [place], [place] [address] Test Date: 2018-02-20 Pat Name: Erasto Yin Department: 109 Room: 2N05 Gender: M Program Writer: : 1960 Requested By: Ofelia Sawyer Order Number: [id number] Reading MD: Genet Manning Measurements Intervals [place] Rate: 102 P: 40 NE: 168 QRS: 72 QRSD: 83 T: 89 QT: 301 QTc: 359 Interpretive Statements SINUS TACHYCARDIA POSSIBLE LEFT ATRIAL ENLARGEMENT ANTEROSEPTAL MYOCARDIAL INFARCTION, POSSIBLY ACUTE ST ELEVATION, CONSIDER INFERIOR INJURY ACUTE [place] Electronically Signed On 02-21-2018 18:11:28 EDT by Genet Manning
--- NOTE | 2018-02-22 06:37 | Electrocardiograph Report ---
[address] [place], [place] [address] Test Date: 2018-02-20 Pat Name: Erasto Yin Department: 104 Room: [facility] Gender: M Server Manager: : 1960 Requested By: Tr Burt Order Number: [id number] Reading MD: Parish Arreola Measurements Intervals [place] Rate: 101 P: 40 [place]: 163 QRS: 70 QRSD: 86 T: 94 QT: 310 QTc: 368 Interpretive Statements SINUS TACHYCARDIA LEFT ATRIAL ENLARGEMENT ANTEROLATERAL MYOCARDIAL INFARCTION ACUTE [place] Electronically Signed On 02-22-2018 6:35:19 EDT by Parish Arreola
--- NOTE | 2018-02-22 08:19 | Discharge Summary ---
Orders not resulted at time of discharge: Pending orders 02/21/18 06:00 ECG 12 lead ECG [ECG] AM 0600 02/21/18 07:00 ECG 12 lead ECG [ECG] Routine 02/22/18 07:45 Basic Metabolic Panel Routine CBC [Complete Blood Count] [HEME] Routine Date of Encounter: 02/22/18 Time of Encounter: 08:15 - Discharge Diagnosis (1) ST elevation myocardial infarction (STEMI) Priority: Primary Status: Acute Qualifiers: Involved coronary artery: unspecified coronary artery Qualified Code(s): I21.3 - ST elevation (STEMI) myocardial infarction of unspecified site (2) Diabetes mellitus Priority: Secondary Status: Chronic Qualifiers: Diabetes mellitus type: type 2 Diabetes mellitus senior care insulin use: with senior care use Diabetes mellitus complication status: without complication Qualified Code(s): E11.9 - Type 2 diabetes mellitus without complications; Z79.4 - exterminator helper (current) use of insulin; Z79.4 - exterminator helper ( current) use of insulin; Z79.4 - exterminator helper (current) use of insulin; Z79.4 - prison (current) use of insulin (3) Tobacco use Priority: Secondary Status: Chronic (4) Hyponatremia Status: Acute Comments: Patient noted to have acute hyponatremia. Sodium 125. Consult placed to hospitalist for further recommendation. - Hospital Course Hospital course: Mr. Yin is a 57 year old male who presented to the ED with the c/o chest pain. He was found to have an acute MS. He went to the dental lab technician emergently and was found to have severe stenosis with thrombus in the proximal LAD. He received successful PTCA and QUINTIN. There was diffuse small vessel CAD. See report above. EF 40%. TTE showed EF 40%. The apex, apical anterior, apical septal and mid inferior septal jnoes were hypokinetic. Trivial pericardial effusion seen. No significant valvular disease. There was no complications from his procedure. No problem noted with his right femoral access site. He was noted to have leukocytosis, likely reactive from MS. No signs of infection. He was also noted to have uncontrolled blood sugars. Hgb A1c was 10.1. He is on insulin, metformin, and januvia. He will continue these on discharge and follow with PCP in one week. Diabetic and cardiac diet stressed. Importance of DAPT with asa and plavix uninterrupted for minimum one year reviewed and he voiced understanding. - Time Spent with Patient Total time spent providing and/or coordinating discharge services: - Discharge Medications Prescriptions: Nitroglycerin 0.4 mg SL Q5MIN PRN #25 tab.subl PRN Reason: Chest Pain Aspirin 81 mg PO DAILY #30 tab.chew Atorvastatin [Lipitor] 80 mg PO HS #30 tablet Carvedilol [Coreg] 3.125 mg PO BIDWM #60 tablet Clopidogrel [Plavix] 75 mg PO DAILY #30 tablet Lisinopril [Zestril] 2.5 mg PO DAILY #30 tablet Nicotine Patch [Nicoderm] 21 mg TD DAILY #30 patch.td24 Home Medications: Insulin DETEMIR [Levemir Flextouch] 60 unit SQ HS 02/20/18 [History] Metformin HCl [Glucophage] 1,000 mg PO BID 02/20/18 [History] SitaGLIPtin [Januvia] 100 mg PO DAILY 02/20/18 [History] Aspirin 81 mg PO DAILY #30 tab.chew 02/22/18 [Rx] Atorvastatin [Lipitor] 80 mg PO HS #30 tablet 02/22/18 [Rx] Carvedilol [Coreg] 3.125 mg PO BIDWM #60 tablet 02/22/18 [Rx] Clopidogrel [Plavix] 75 mg PO DAILY #30 tablet 02/22/18 [Rx] Lisinopril [Zestril] 2.5 mg PO DAILY #30 tablet 02/22/18 [Rx] Nicotine Patch [Nicoderm] 21 mg TD DAILY #30 patch.td24 02/22/18 [Rx] Nitroglycerin 0.4 mg SL Q5MIN PRN #25 tab.subl 02/22/18 [Rx] Allergies/Adverse Reactions: 3 Allergy/AdvReac Type Severity Reaction Status Date / Time No Known Allergies Allergy Verified 02/20/18 18:52 Date of admission: 02/20/18 19:41 Primary care physician: Anny Velez Consults: 02/20/18 20:31 Consult to Cardiac Rehabilitation-Phase1 [CONS] Routine Comment: Reason for Consult: AMI Call Completed: Yes Consult to Nurse Navigator [CONS] Routine Comment: Discharging clinician: Jesse Pizano Anticipated date of discharge: 02/22/18 Physical Examination Vital Signs, Last 4 Hours Temp Pulse Resp BP Pulse Ox 02/22/18 07:32 98.4 F 87 17 107/69 94 02/22/18 04:47 99.6 F 92 16 116/67 96 [facility] report: Lesion Findings/Interventions * Left Main Coronary Artery There is a 30% stenosis in the LMCA. * Left Anterior Descending There is a 20 mm long, 100% stenosis in the Proximal LAD. The lesion has a MARII flow of 0 and has thrombus present. An intervention was performed on the Proximal LAD with a final stenosis of 0%. There were no lesion complications. The final MARII flow was 3. There is a 70% stenosis in the 1st Diagonal- small, diffusely diseased. * Circumflex There is a 40% stenosis in the Proximal Circumflex. There is a 95% stenosis in the 2nd Marginal- small, diffusely diseased. * Right Coronary Artery There is a 30% stenosis in the Proximal RCA. There is a 40% stenosis in the Mid RCA. There is a 30% stenosis in the Distal RCA. There is a 95% stenosis in the Right PDA- small, diffusely diseased. - Patient Status Condition: Fair - Discharge Instructions Instructions: Myocardial Infarction (DC), Chest Pain (DC), Left Heart Catheterization (DC), Diabetes Mellitus Type 2 in Adults (DC), Coronary Intravascular Stent Placement, Wood Patternmaker Apprentice (GEN) Follow Up With: Jesse Pizano CNP [Advanced Practice Nurse] - (office will call patient at home with appointment) Anny Velez MD [Primary Care Provider] - 03/02/18 10:45 am - VTE Reasons for not Prescribing Prophylaxis: Not indicated-Anticoagulated or INR therapeutic
[2018-02-22] MEDS: Aspirin 81 MG TAB.CHEW PO SCH (08:43)
[2018-02-22] MEDS: Insulin LISPRO 300 UNITS/3 ML VIAL SQ SCH ×5 (08:44→20:44)
[2018-02-22 08:54] LABS: Basophils % 0.2 %; Eosinophils # 0.1 K/mcL (0.0-0.6); Eosinophils % 0.5 %; Hematocrit 36.5 % (37.5-50.1); Hemoglobin 12.8 g/dL (12.9-16.9); Immature Granulocytes % 0.8 % (0-4); Lymphocytes # 1.3 K/mcL (0.6-4.6); Mean Corpuscular HGB Conc 35.1 g/dL (31.6-35.5); Mean Corpuscular Hemoglobin 31.2 pg (28.0-33.3); Mean Platelet Volume 12.2 fL (9.4-12.4); Monocytes # 1.2 K/mcL (0.0-1.3); Monocytes % 9.2 %; Neutrophils # 10.5 K/mcL (1.6-8.9); Platelet Count 133 K/mcL (140-400); Red Cell Distribution Width 12.7 % (11.5-14.5); Segmented Neutrophils % 79.3 %
[2018-02-22 09:04] LABS: BUN/Creatinine Ratio 33 (6-26); Blood Urea Nitrogen 41 mg/dL (6-20); Calcium 8.8 mg/dL (8.6-10.3); Carbon Dioxide 22 mEq/L (23-29); Chloride 95 mEq/L (98-107); Glucose 321 mg/dL (70-105); Osmolality,Calculated 282 (280-300); Potassium 3.9 mEq/L (3.5-5.1); Sodium 125 mEq/L (136-145); eGFR For African Americans > 60 (> 60); eGFR For Non-African Americans 59 (> 60)
[2018-02-22] MEDS: *HR* SitaGLIPtin 100 MG TABLET PO SCH (10:37)
--- NOTE | 2018-02-22 14:08 | Cardiology Progress Note ---
Date of Encounter: 02/22/18 Time of Encounter: 14:05 Assessment and Plan (1) ST elevation myocardial infarction (STEMI) Current Visit: Yes Status: Acute S/p acute anterolateral STEMI. Troponin up to 46.86. Emergent cardiac catheterization revealed severe stenosis in the proximal LAD with thrombus. S/P PTCA and QUINTIN to pLAD. EF 40%. TTE showed EF 40% There was no complication from the procedure. Denies recurrent chest pain. No complications from right femoral access site. Importance of DAPT with asa and plavix uninterrupted for minimum of one year discussed and he voiced understanding. Continue statin and BB. Telemetry review shows SR with BBB. No VT. Avg HR 96 bpm. TTE showed EF 40%. The apex, apical anterior, apical septal and mid inferior septal jones were hypokinetic. Trivial pericardial effusion seen. No significant valvular disease. Smoking cessation discussed. Patient requesting nicotine patch. Cardiac rehab ordered. Qualifiers: Involved coronary artery: unspecified coronary artery Qualified Code(s): I21.3 - ST elevation (STEMI) myocardial infarction of unspecified site (2) Diabetes mellitus Current Visit: No Status: Chronic Continue SSI. Add back levimer and januvia. Start metformin tomorrow. Hgb A1c 10.1. Close out-pt f/u with PCP recommended. Qualifiers: Diabetes mellitus type: type 2 Diabetes mellitus group home insulin use: with group home use Diabetes mellitus complication status: without complication Qualified Code(s): E11.9 - Type 2 diabetes mellitus without complications; Z79.4 - superintendent marine oil terminal (current) use of insulin; Z79.4 - superintendent marine oil terminal ( current) use of insulin; Z79.4 - superintendent marine oil terminal (current) use of insulin; Z79.4 - [facility] (current) use of insulin (3) Tobacco use Current Visit: Yes Status: Chronic Smoking cessation discussed. Doing well. Will RX nicotine patch at discharge. (4) Hyponatremia Current Visit: Yes Status: Acute Sodium 125 today. Patient only c/o fatigue. Hospitalist consulted for evaluation. Discussed with Dr. Wilson. Discussion w patient/family: The assessment and plan as outlined above was discussed with the patient and/or family members who expressed understanding and agreement. All questions were answered. Thank you for involving us in the care of your patient. Please call with any questions. Subjective Principal diagnosis: Acute anterior MS Interval history: Mr. Yin reports he is doing well. C/o fatigue. Objective Vital Signs, Last 4 Hours Temp Pulse Resp BP Pulse Ox 02/22/18 11:42 98.1 F 76 18 99/66 94 General: Conversant, No Apparent Distress HEENT: Atraumatic, Normocephaly, Mucus Membranes Moist Neck: No JVD, Normal carotid pulses Cardiac: Reg Rate and Rhythm, Normal S1 and S2, No Murmur Lungs: Normal Breath Sounds, No Wheeze, Rales, Rhonchi Neuro: Alert and responsive, No focal deficits noted Abdomen: Soft, Non-Tender Skin: No rashes noted on visualized skin Musculoskeletal: No Chest Wall Tenderness Extremities: No Clubbing, No Cyanosis, No Edema, Normal Pulses, Other (Right femoral access without hematoma. ) Results 02/22/18 07:52 02/22/18 07:52 Lab Results 02/22/18 02/22/18 07:52 07:52 WBC 13.2 H Hgb 12.8 L Hct 36.5 L Plt Count 133 L Sodium 125 L Potassium 3.9 Chloride 95 L Carbon Dioxide 22 L BUN 41 H Creatinine 1.25 Glucose 321 H Calcium 8.8 - Imaging and Cardiology Echo: report reviewed Cardiac cath: report reviewed - EKG Interpretation EKG results cardiology: personally reviewed - VTE Reasons for not Prescribing Prophylaxis: Not indicated-Anticoagulated or INR therapeutic Consult Discharge Plan - Plan Instructions: Myocardial Infarction (DC), Chest Pain (DC), Left Heart Catheterization (DC), Diabetes Mellitus Type 2 in Adults (DC), Coronary Intravascular Stent Placement, School Transportation Supervisor (GEN) Referrals: Jesse Pizano CNP [Advanced Practice Nurse] - (office will call patient at home with appointment) Anny Velez MD [Primary Care Provider] - 03/02/18 10:45 am Prescriptions: Nitroglycerin 0.4 mg SL Q5MIN PRN #25 tab.subl PRN Reason: Chest Pain Aspirin 81 mg PO DAILY #30 tab.chew Atorvastatin [Lipitor] 80 mg PO HS #30 tablet Carvedilol [Coreg] 3.125 mg PO BIDWM #60 tablet Clopidogrel [Plavix] 75 mg PO DAILY #30 tablet Lisinopril [Zestril] 2.5 mg PO DAILY #30 tablet Nicotine Patch [Nicoderm] 21 mg TD DAILY #30 patch.td24
--- NOTE | 2018-02-22 14:12 | Internal Medicine Consult Note ---
<Jeremiah Galvan - Last Filed: 02/22/18 15:12> Date of Encounter: 02/22/18 Time of Encounter: 14:07 - Assessment and Plan (1) Hyponatremia Current Visit: Yes Status: Acute Assessment and plan: Na2+ decreased from 131 to 125 both in setting of hyperglycemia. previous normal patient euvolemic will get urine sodium, osmolality and serum osmolality, thyroid panel. was NPO due to [facility] procedure which may have contributed to hyponatermia (2) ST elevation myocardial infarction (STEMI) Current Visit: Yes Status: Acute Assessment and plan: s/p pci to lad on DAPT, statin, bb Qualifiers: Involved coronary artery: LAD coronary artery Qualified Code(s): I21.3 - ST elevation (STEMI) myocardial infarction of unspecified site (3) Tobacco use Current Visit: Yes Status: Chronic Assessment and plan: patient educated on smoking cessation. (4) Diabetes mellitus Current Visit: Yes Status: Chronic Assessment and plan: uncontrolled. hgA1c 10.2 glucose 321 start basal insulin continue insulin sliding scale. Qualifiers: Diabetes mellitus type: type 2 Diabetes mellitus watermaster insulin use: with watermaster use Diabetes mellitus complication status: without complication Qualified Code(s): E11.9 - Type 2 diabetes mellitus without complications; Z79.4 - manager terminal (current) use of insulin; Z79.4 - manager terminal ( current) use of insulin; Z79.4 - manager terminal (current) use of insulin; Z79.4 - manager terminal (current) use of insulin Internal Medicine - CN: HPI - Data of Consult Patient: new to practice Consult date: 02/22/18 Requesting Physician: Ofelia Sawyer - Consult Narrative Reason for consult: hyponatremia History of present illness: Mr. Yin is a 57 year old male presented on 02/20/2018 with chief complaint of chest pain. Consult was placed on 02/22/2018 for worsening hyponatremia. Patient found to have STEMI and underwent urgent left heart catheterization. Patient status post PCI to LAD. On admission patient's sodium was 131. Today is 125. Patient has uncontrolled diabetes mellitus with A1c of 10.2 and as a meeting plasma glucose of 246. Patient denies any history of hyponatremia. He denies poly-diphtheria, polyuria. Denies any history of abdominal surgeries. Denies headache, confusion, dry mouth, chest pain, palpitations, shortness of breath, cough, abdominal pain, nausea, vomiting, diarrhea. Past Med Surg Social Fam HX - Past Medical History Medical history: diabetes Psychiatric history: no psych history - Past Surgical History Surgical History: cataract, other - Social History Smoking Status: Current every day smoker Alcohol use: none Drug use: none - Family History Father Living Status: Hx Family Cardiac Disorders: Yes Review of systems: Constitutional: Denies fever, chills HEENT: Denies headache, vision changes, neck pain, sore throat, rhinorrhea Heart: Denies chest pain palpitations Lungs: Denies shortness of breath cough Abdomen: Denies abdominal pain nausea vomiting diarrhea Back: Denies back pain Kidney: Denies dysuria, hematuria Skin: warm and dry Extremities: Denies swelling, pain Neuro: Denies numbness, and tingling Internal Medicine - CN: Meds Insulin DETEMIR [Levemir Flextouch] 60 unit SQ HS 02/20/18 [History] Metformin HCl [Glucophage] 1,000 mg PO BID 02/20/18 [History] SitaGLIPtin [Januvia] 100 mg PO DAILY 02/20/18 [History] Aspirin 81 mg PO DAILY #30 tab.chew 02/22/18 [Rx] Atorvastatin [Lipitor] 80 mg PO HS #30 tablet 02/22/18 [Rx] Carvedilol [Coreg] 3.125 mg PO BIDWM #60 tablet 02/22/18 [Rx] Clopidogrel [Plavix] 75 mg PO DAILY #30 tablet 02/22/18 [Rx] Lisinopril [Zestril] 2.5 mg PO DAILY #30 tablet 02/22/18 [Rx] Nicotine Patch [Nicoderm] 21 mg TD DAILY #30 patch.td24 02/22/18 [Rx] Nitroglycerin 0.4 mg SL Q5MIN PRN #25 tab.subl 02/22/18 [Rx] 3 Allergy/AdvReac Type Severity Reaction Status Date / Time No Known Allergies Allergy Verified 02/20/18 18:52 Internal Medicine - CN: Exam - Constitutional Vitals: Temp Pulse Resp BP Pulse Ox 98.1 F 76 18 99/66 94 02/22/18 11:42 02/22/18 11:42 02/22/18 11:42 02/22/18 11:42 02/22/18 11:42 - Other Additional findings: General: without distress HEENT: Head atraumatic, normocephalic, EOMI, PERRLA, neck nontender to palpation , absent lymphadenopathy, Moist Mucous Membranes, Heart: Regular rate and rhythm with no murmur Lungs: Clear to auscultation bilaterally Abdomen: Soft nontender, nondistended positive bowel sounds Skin: warm and dry, Extremities: Absent pedal edema, right femoral access site intact. Neuro: Cranial nerves II through XII intact, UE and LE sensation equal bilaterally, UE and LEstrength 5/5, alert oriented 3, Heel to silveira intact, finger to nose intact, Gait intact, rhombergs sign negative, b/l plantar reflexes downwards Vascular: Pedal and radial pulses 2 out of 4 Internal Medicine - CN: Reslt - Labs CBC & Chem 7: 02/22/18 07:52 02/22/18 07:52 Labs: Short CBC 02/22/18 Range/Units 07:52 WBC 13.2 H (4.3-11.1) K/mcL Hgb 12.8 L (12.9-16.9) g/dL Hct 36.5 L (37.5-50.1) % Plt Count 133 L (140-400) K/mcL Neutrophils # 10.5 H (1.6-8.9) K/mcL BMP 02/22/18 07:52 Sodium 125 L Potassium 3.9 Chloride 95 L Carbon Dioxide 22 L BUN 41 H Creatinine 1.25 Glucose 321 H Calcium 8.8 - ABG Interpretation ABG results: PT/INR, D-dimer PT 13.7 Seconds (9.4-12.1) H 02/20/18 19:01 - Impressions Impressions Echocardiogram 02/21/18 11:00 Impressions: LVEF 40% Global and segmental LV systolic dysfunction. Mild left ventricular diastolic dysfunction. Normal right ventricular structure and function. No significant valvular dysfunction. No pulmonary hypertension. There is a trivial pericardial effusion present. There is no echocardiographic evidence of tamponade. Left Ventricular Wall Motion: Rest Echo Findings The apex, apical anterior, apical septal and mid inferior septal jones were hypokinetic. All other wall segments showed normal motion. Findings: Study Quality * Technically adequate exam. ECG Findings * Normal sinus rhythm. Left Ventricle * LVEF 40%. * Mild left ventricular diastolic dysfunction. * Normal LV size and wall thickness. Right Ventricle * Normal right ventricular structure and function. Left Atrium * Normal left atrial size. Right Atrium * Normal right atrial size. Mitral Valve * Mild-moderate mitral annular calcification * Normal mitral valve structure. * No mitral stenosis. * Trace mitral regurgitation. Aortic Valve * No aortic regurgitation. * Aortic valve not well visualized. * No aortic stenosis. Tricuspid Valve * Tricuspid valve not well visualized. * Trace tricuspid regurgitation. * Estimated RA pressure is 8 mmHg. * Estimated RVSP is 28 mmHg. * No pulmonary hypertension. Pulmonic Valve * Pulmonic valve is not well visualized. * No pulmonic stenosis. * No pulmonic regurgitation. Pulmonary Artery * Pulmonary artery not well visualized. Aorta * Normally sized aortic root. Pericardium * There is a trivial pericardial effusion present. * There is no echocardiographic evidence of tamponade. Interatrial Septum * No evidence of PFO by color Doppler. IVC * The IVC is not dilated. * < 50% respiratory change. Consult Discharge Plan - Plan Instructions: Myocardial Infarction (DC), Chest Pain (DC), Left Heart Catheterization (DC), Diabetes Mellitus Type 2 in Adults (DC), Coronary Intravascular Stent Placement, Repairer Wood Furniture (GEN) Referrals: Jesse Pizano CNP [Advanced Practice Nurse] - (office will call patient at home with appointment) Anny Velez MD [Primary Care Provider] - 03/02/18 10:45 am Prescriptions: Nitroglycerin 0.4 mg SL Q5MIN PRN #25 tab.subl PRN Reason: Chest Pain Aspirin 81 mg PO DAILY #30 tab.chew Atorvastatin [Lipitor] 80 mg PO HS #30 tablet Carvedilol [Coreg] 3.125 mg PO BIDWM #60 tablet Clopidogrel [Plavix] 75 mg PO DAILY #30 tablet Lisinopril [Zestril] 2.5 mg PO DAILY #30 tablet Nicotine Patch [Nicoderm] 21 mg TD DAILY #30 patch.td24 <Ayush Lewis - Last Filed: 02/22/18 18:52> Date of Encounter: 02/22/18 Internal Medicine - CN: HPI - Data of Consult Requesting Physician: Ofelia Sawyer - Consult Narrative History of present illness: Mr. Yin is a 57 year old male Internal Medicine - CN: Exam - Constitutional Vitals: Temp Pulse Resp BP Pulse Ox 97.7 F 81 18 104/68 97 02/22/18 16:30 02/22/18 16:30 02/22/18 16:30 02/22/18 16:30 02/22/18 16:30 Internal Medicine - CN: Reslt - Labs CBC & Chem 7: 02/22/18 07:52 02/22/18 07:52 Labs: Short CBC 02/22/18 Range/Units 07:52 WBC 13.2 H (4.3-11.1) K/mcL Hgb 12.8 L (12.9-16.9) g/dL Hct 36.5 L (37.5-50.1) % Plt Count 133 L (140-400) K/mcL Neutrophils # 10.5 H (1.6-8.9) K/mcL BMP 02/22/18 07:52 Sodium 125 L Potassium 3.9 Chloride 95 L Carbon Dioxide 22 L BUN 41 H Creatinine 1.25 Glucose 321 H Calcium 8.8 - ABG Interpretation ABG results: PT/INR, D-dimer PT 13.7 Seconds (9.4-12.1) H 02/20/18 19:01 - Attending Attestation I performed a [id number] diagnostic evaluation of this patient and my medical decision-making was reviewed with the Resident Physician, Dr Jeremiah Galvan. I agree with the documented findings, disposition and treatment plan as described except to the extent set forth below. Physical exam: Gen: NAD, AAOx3 Heart: RRR, S1S2, no murmurs Lungs: CTABL Abdomen: S, NT, + bowel sounds Assessment: New worsening euvolemic hyponatremia Plan: Check serum sodium, serum osmolality, check TSH and cortisol level. Ayush Lewis MD
--- NOTE | 2018-02-22 16:58 | Electrocardiograph Report ---
[address] [place], [place] [address] Test Date: 2018-02-22 Pat Name: Erasto Yin Department: 110 Room: 2N05 Gender: M Corporate Wellness Coordinator: [id number] : 1960 Requested By: Ofelia Sawyer Order Number: [id number] Reading MD: Devin Hadley Measurements Intervals [place] Rate: 80 P: 12 TX: 174 QRS: 63 QRSD: 105 T: 82 QT: 357 QTc: 393 Interpretive Statements SINUS RHYTHM WITH SINUS ARRHYTHMIA ANTEROLATERAL MYOCARDIAL INFARCTION, PROBABLY RECENT ST ELEVATION, CONSIDER INFERIOR INJURY ACUTE [place] Electronically Signed On 02-22-2018 16:56:58 EDT by Devin Hadley
[2018-02-22] MEDS ORDERED: *HR* Heparin 5,000 UNIT/ML VIAL SQ SCH (18:30)
[2018-02-22] MEDS ORDERED: Insulin DETEMIR 100 UNIT/ML X5UNITS SQ SCH (21:00)
[2018-02-23 04:47] LABS: BUN/Creatinine Ratio 39 (6-26); Blood Urea Nitrogen 42 mg/dL (6-20); Carbon Dioxide 25 mEq/L (23-29); Chloride 99 mEq/L (98-107); Glucose 124 mg/dL (70-105); Osmolality,Calculated 286 (280-300); Potassium 3.6 mEq/L (3.5-5.1); Sodium 132 mEq/L (136-145); eGFR For African Americans > 60 (> 60); eGFR For Non-African Americans > 60 (> 60)
[2018-02-23 07:41] VITALS: BP 113/61
[2018-02-23] MEDS ORDERED: *HR* Heparin 5,000 UNIT/ML VIAL SQ SCH (09:00)
[2018-02-23] MEDS: Insulin LISPRO 300 UNITS/3 ML VIAL SQ SCH ×2 (09:04→09:05)
[2018-02-23 09:06] LABS: Basophils % 0.4 %; Eosinophils # 0.1 K/mcL (0.0-0.6); Eosinophils % 1.1 %; Hematocrit 35.9 % (37.5-50.1); Hemoglobin 12.5 g/dL (12.9-16.9); Immature Granulocytes % 0.5 % (0-4); Lymphocytes # 1.3 K/mcL (0.6-4.6); Lymphocytes % 15.8 %; Mean Corpuscular HGB Conc 34.8 g/dL (31.6-35.5); Mean Corpuscular Hemoglobin 31.1 pg (28.0-33.3); Mean Corpuscular Volume 89.3 fL (83.0-100.0); Mean Platelet Volume 11.9 fL (9.4-12.4); Monocytes % 11.8 %; Neutrophils # 5.9 K/mcL (1.6-8.9); Platelet Count 160 K/mcL (140-400); Red Blood Count 4.02 M/mcL (4.19-5.50); Red Cell Distribution Width 12.7 % (11.5-14.5); Segmented Neutrophils % 70.4 %
[2018-02-23] MEDS: Aspirin 81 MG TAB.CHEW PO SCH (09:06)
[2018-02-23] MEDS: *HR* SitaGLIPtin 100 MG TABLET PO SCH (09:11)
--- NOTE | 2018-02-23 09:24 | Discharge Summary ---
Orders not resulted at time of discharge: Pending orders 02/21/18 06:00 ECG 12 lead ECG [ECG] AM 0600 02/21/18 07:00 ECG 12 lead ECG [ECG] Routine 02/22/18 14:05 Urinalysis reflex Microscopic [URIN] Routine Date of Encounter: 02/23/18 Time of Encounter: 09:23 - Discharge Diagnosis (1) ST elevation myocardial infarction (STEMI) Priority: Primary Status: Acute Qualifiers: Involved coronary artery: LAD coronary artery Qualified Code(s): I21.02 - ST elevation (STEMI) myocardial infarction involving left anterior descending coronary artery (2) Diabetes mellitus Priority: Secondary Status: Chronic Qualifiers: Diabetes mellitus type: type 2 Diabetes mellitus regional clinical research associate insulin use: with custodial use Diabetes mellitus complication status: without complication Qualified Code(s): E11.9 - Type 2 diabetes mellitus without complications; Z79.4 - halfway (current) use of insulin; Z79.4 - photo specialist ( current) use of insulin; Z79.4 - halfway (current) use of insulin; Z79.4 - halfway (current) use of insulin (3) Tobacco use Priority: Secondary Status: Chronic (4) Hyponatremia Priority: Secondary Status: Resolved - Hospital Course Hospital course: Mr. Yin is a 57 year old male with past medical history of uncontrolled DM type II, HTN, and tobacco abuse who presented with chest pain for 12 hours. He was found to have acute anteriolateral myocardial FL. He received PTCA and QUINTIN to the pLAD. EF 40%. Troponin up to 46.86. Emergent cardiac catheterization revealed severe stenosis in the proximal LAD with thrombus. S/P PTCA and QUINTIN to pLAD with good results. There was diffuse small vessel disease noted (see report below). EF 40%. TTE showed EF 40%. The apex, apical anterior, apical septal and mid inferior septal jones were hypokinetic. Trivial pericardial effusion seen. No significant valvular disease. There was no complication from the procedure. Denies recurrent chest pain. No complications from right femoral access site. Importance of DAPT with asa and plavix uninterrupted for minimum of one year discussed and he voiced understanding. Continue statin , BB, lisinopril. He is currently euvolemic. Telemetry review shows SR with BBB. No VT. Avg HR 96 bpm. Hospitalist consulted for acute hyponatremia, uncontrolled DM. Hyponatremia resolved. Thought to be secondary to NPO status and hyperglycemia. HgbA1c found to be 10.1. He voiced non-compliance with diabetic diet. He was recommended to continue home diabetic medication and consider out patient endocrinology consult. Diabetic diet was stressed. He was also noted to have mild anemia. No signs of bleeding. Discussed with hospitalist. No indication for GI eval at this time. Monitor closely in-out patient setting. He is now ready for discharged. Out-pt f/u will be scheduled. [facility] report: There is a 30% stenosis in the LMCA. * Left Anterior Descending There is a 20 mm long, 100% stenosis in the Proximal LAD. The lesion has a MARII flow of 0 and has thrombus present. An intervention was performed on the Proximal LAD with a final stenosis of 0%. There were no lesion complications. The final MARII flow was 3. There is a 70% stenosis in the 1st Diagonal- small, diffusely diseased. * Circumflex There is a 40% stenosis in the Proximal Circumflex. There is a 95% stenosis in the 2nd Marginal- small, diffusely diseased. * Right Coronary Artery There is a 30% stenosis in the Proximal RCA. There is a 40% stenosis in the Mid RCA. There is a 30% stenosis in the Distal RCA. There is a 95% stenosis in the Right PDA- small, diffusely diseased. Time spent discussing smoking cessation with patient: more than 10 minutes - Time Spent with Patient Total time spent providing and/or coordinating discharge services: Greater than 30 minutes (1.5 hr. D/c summary, teaching, POC discussion.) - Discharge Medications Prescriptions: Nitroglycerin 0.4 mg SL Q5MIN PRN #25 tab.subl PRN Reason: Chest Pain Aspirin 81 mg PO DAILY #30 tab.chew Atorvastatin [Lipitor] 80 mg PO HS #30 tablet Carvedilol [Coreg] 3.125 mg PO BIDWM #60 tablet Clopidogrel [Plavix] 75 mg PO DAILY #30 tablet Lisinopril [Zestril] 2.5 mg PO DAILY #30 tablet Nicotine Patch [Nicoderm] 21 mg TD DAILY #30 patch.td24 Home Medications: Insulin DETEMIR [Levemir Flextouch] 60 unit SQ HS 02/20/18 [History] Metformin HCl [Glucophage] 1,000 mg PO BID 02/20/18 [History] SitaGLIPtin [Januvia] 100 mg PO DAILY 02/20/18 [History] Aspirin 81 mg PO DAILY #30 tab.chew 02/22/18 [Rx] Atorvastatin [Lipitor] 80 mg PO HS #30 tablet 02/22/18 [Rx] Carvedilol [Coreg] 3.125 mg PO BIDWM #60 tablet 02/22/18 [Rx] Clopidogrel [Plavix] 75 mg PO DAILY #30 tablet 02/22/18 [Rx] Lisinopril [Zestril] 2.5 mg PO DAILY #30 tablet 02/22/18 [Rx] Nicotine Patch [Nicoderm] 21 mg TD DAILY #30 patch.td24 02/22/18 [Rx] Nitroglycerin 0.4 mg SL Q5MIN PRN #25 tab.subl 02/22/18 [Rx] Allergies/Adverse Reactions: 3 Allergy/AdvReac Type Severity Reaction Status Date / Time No Known Allergies Allergy Verified 02/20/18 18:52 Date of admission: 02/20/18 19:41 Primary care physician: Anny Velez Consults: 02/20/18 20:31 Consult to Cardiac Rehabilitation-Phase1 [CONS] Routine Comment: Reason for Consult: AMI Call Completed: Yes Consult to Nurse Navigator [CONS] Routine Comment: 02/22/18 11:47 Consult to Hospitalist [CONS] Routine Consulting Provider: Hospitalist Alejandra Reason for Consult: hyponatremia Call Completed: Yes Discharging clinician: Jesse Pizano Anticipated date of discharge: 02/23/18 Physical Examination Vital Signs, Last 4 Hours Temp Pulse Resp BP Pulse Ox 02/23/18 07:37 97.5 F L 76 17 113/61 96 General: Conversant, No Apparent Distress HEENT: Atraumatic, Normocephaly, Mucus Membranes Moist Neck: No JVD, Normal carotid pulses Cardiac: Reg Rate and Rhythm, Normal S1 and S2, No Murmur Lungs: Normal Breath Sounds, No Wheeze, Rales, Rhonchi Neuro: Alert and responsive, No focal deficits noted Abdomen: Soft, Non-Tender Skin: No rashes noted on visualized skin Musculoskeletal: No Chest Wall Tenderness Extremities: No Clubbing, No Cyanosis, No Edema, Normal Pulses, Other (right groin without hematoma. ) - Patient Status Disposition: Home, Self-Care Condition: Fair - Discharge Instructions Instructions: Lisinopril (By mouth), Aspirin (By mouth), Nicotine (Absorbed through the skin), Nitroglycerin, Rapid Release (By mouth), Atorvastatin (By mouth), Carvedilol (By mouth), Myocardial Infarction (DC), Chest Pain (DC), Left Heart Catheterization (DC), Diabetes Mellitus Type 2 in Adults (DC), Coronary Intravascular Stent Placement, Solvent Recoverer (GEN) Follow Up With: Jesse Pizano CNP [Advanced Practice Nurse] - (office will call patient at home with appointment) Anny Velez MD [Primary Care Provider] - 03/02/18 10:45 am Additional Instructions: RISK FACTORS: STOP SMOKING: If you smoke, STOP. Smoking or tobacco use significantly increases your risk of heart disease because nicotine causes the arteries to narrow or constrict. It also causes fats to stick to the artery. Your chances of having a heart attack are greatly increased if you continue to smoke. For more information, call the education line for smoking cessation 8-674-LKUZXRM EAT A LOW FAT/CHOLESTEROL/SODIUM DIET: This diet may help reduce your chances of having a heart attack. LIFTING: Avoid lifting anything more than 10 pounds for 5-7 days Prior to straining, laughing, sneezing and/or coughing, apply manual pressure directly over insertion site. ACTIVITY: You may walk or climb stairs as tolerated You can resume sexual activity as tolerated In general, you are encouraged to engage in a minimum of 30 minutes or more of moderate intensity physical activity, such as brisk walking, daily or at least 3 -4 times weekly BATHING Do not submerge the site into water (bath tub, hot tub, swimming pool) for 1 week. This can be a source for infection into the blood stream. You may shower after 24 hours SITE CARE: After 24 hours, you may remove the dressing and leave the site open to air. Keep the site clean and dry. Clean gently and pat dry. You can expect bruising and tenderness that gradually resolve within a week or two. Return to work as instructed per your physician Resume driving as instructed per physician Keep all scheduled follow up appointments Resume medications as instructed IMPORTANT: If prescribed a Platelet Aggregation Inhibitor such as, Plavix, Brilinta or Effient: Duration of therapy is minimum one year These medications are often used in combination with Aspirin in prevention of future heart attacks Never discontinue unless consult with your Hand Fur Cleaner STROKE (CVA) Risk factors for a stroke are: Age, cigarette smoking, diabetes, excessive alcohol consumption, family history, high blood pressure, overweight, physical inactivity, prior stroke, heart attack, diagnosis of carotid artery stenosis or other artery disease. Warning signs: Sudden numbness or weakness of the face, arm or leg; especially on one side of the body, sudden confusion, trouble speaking or understanding, sudden trouble seeing in one or both eyes, sudden trouble walking, dizziness, loss of balance or coordination, sudden severe headache with no cause. Call 911 or go to the Emergency Room. CONGESTIVE HEART FAILURE: If you have been diagnosed with Congestive Heart Failure (CHF) and your symptoms return, make an appointment with your physician Weigh yourself daily. Notify your physician if you have a weight gain of two or more pounds in one day or five or more pounds in one week. If you experience any difficulty breathing, please call 911 BLEEDING: Although the risk of bleeding is minimal, it can happen. If you have any bleeding from the site, apply firm pressure above the puncture site for 10-15 minutes. If the bleeding does not stop, continue manual pressure and call 911 Contact your physician if: You develop a fever greater than 101 degrees Fahrenheit Your site becomes reddened or has any drainage You have an increase in pain or burning at the site or if a large knot forms at the site. If you experience chest pain, shortness of breath, dizziness, or extreme tiredness, stop the activity and rest. Please notify your physicians office if you experience any of these symptoms and they are not relieved by rest please call 911! - Diet and Activity Activity: increase activity as tolerated Diet: diabetic diet, low fat, low cholesterol, low salt diet - VTE Reasons for not Prescribing Prophylaxis: Not indicated-Anticoagulated or INR therapeutic
--- NOTE | 2018-02-23 09:42 | Internal Med Progress Note ---
<Jeremiah Galvan - Last Filed: 02/23/18 09:40> Date of Encounter: 02/23/18 Time of Encounter: 09:40 - Assessment and plan (1) Hyponatremia Status: Resolved Assessment and plan: Improved. Secondary to decreased salt intake from being NPO and on diabetic diet Patient given regular diet overnight. continue cardiac diet at home. patient okay to discharge (2) Diabetes mellitus Status: Chronic Assessment and plan: uncontrolled. hgA1c 10.2 continue home insulin follow up with pcp for diabetes management. Qualifiers: Diabetes mellitus type: type 2 Diabetes mellitus terminal press operator insulin use: with long-term use Diabetes mellitus complication status: without complication Qualified Code(s): E11.9 - Type 2 diabetes mellitus without complications; Z79.4 - terminal press operator (current) use of insulin; Z79.4 - terminal press operator ( current) use of insulin; Z79.4 - terminal press operator (current) use of insulin; Z79.4 - terminal press operator (current) use of insulin (3) ST elevation myocardial infarction (STEMI) Status: Acute Assessment and plan: s/p pci to lad on DAPT, statin, bb Qualifiers: Involved coronary artery: LAD coronary artery Qualified Code(s): I21.02 - ST elevation (STEMI) myocardial infarction involving left anterior descending coronary artery (4) Tobacco use Status: Chronic Assessment and plan: patient educated on smoking cessation. - Subjective Interval history: Patient denies any acute events overnight. Denies headache, chest pain, shortness of breath, abdominal pain, lower extremity pain. He is able to ambulate independently. He is tolerating his diet. - Constitutional Vitals: Temp Pulse Resp BP Pulse Ox 97.5 F L 76 17 113/61 96 02/23/18 07:37 02/23/18 07:37 02/23/18 07:37 02/23/18 07:37 02/23/18 07:37 - Other Additional findings: General: without distress Heart: Regular rate and rhythm with no murmur Lungs: Clear to auscultation bilaterally Abdomen: Soft nontender, nondistended positive bowel sounds Skin: warm and dry Extremities: Absent pedal edema, Neuro: Alert oriented 3 Vascular: Pedal and radial pulses 2 out of 4 Internal Medicine: Result - Labs CBC & Chem 7: 02/23/18 08:09 02/23/18 04:00 Labs: Short CBC 03/30/18 Range/Units 08:09 WBC 8.3 (4.3-11.1) K/mcL Hgb 12.5 L (12.9-16.9) g/dL Hct 35.9 L (37.5-50.1) % Plt Count 160 (140-400) K/mcL Neutrophils # 5.9 (1.6-8.9) K/mcL BMP 02/23/18 04:00 Sodium 132 L Potassium 3.6 Chloride 99 Carbon Dioxide 25 BUN 42 H Creatinine 1.09 Glucose 124 H Calcium 9.0 - ABG Interpretation ABG results: PT/INR, D-dimer PT 13.7 Seconds (9.4-12.1) H 02/20/18 19:01 - VTE Reasons for not Prescribing Prophylaxis: Not indicated-Anticoagulated or INR therapeutic Consult Discharge Plan - Plan Instructions: Lisinopril (By mouth), Aspirin (By mouth), Nicotine (Absorbed through the skin), Nitroglycerin, Rapid Release (By mouth), Atorvastatin (By mouth), Carvedilol (By mouth), Myocardial Infarction (DC), Chest Pain (DC), Left Heart Catheterization (DC), Diabetes Mellitus Type 2 in Adults (DC), Coronary Intravascular Stent Placement, Hand Edger (GEN) Additional Instructions: RISK FACTORS: STOP SMOKING: If you smoke, STOP. Smoking or tobacco use significantly increases your risk of heart disease because nicotine causes the arteries to narrow or constrict. It also causes fats to stick to the artery. Your chances of having a heart attack are greatly increased if you continue to smoke. For more information, call the education line for smoking cessation 6-676-DZWKLPU EAT A LOW FAT/CHOLESTEROL/SODIUM DIET: This diet may help reduce your chances of having a heart attack. LIFTING: Avoid lifting anything more than 10 pounds for 5-7 days Prior to straining, laughing, sneezing and/or coughing, apply manual pressure directly over insertion site. ACTIVITY: You may walk or climb stairs as tolerated You can resume sexual activity as tolerated In general, you are encouraged to engage in a minimum of 30 minutes or more of moderate intensity physical activity, such as brisk walking, daily or at least 3 -4 times weekly BATHING Do not submerge the site into water (bath tub, hot tub, swimming pool) for 1 week. This can be a source for infection into the blood stream. You may shower after 24 hours SITE CARE: After 24 hours, you may remove the dressing and leave the site open to air. Keep the site clean and dry. Clean gently and pat dry. You can expect bruising and tenderness that gradually resolve within a week or two. Return to work as instructed per your physician Resume driving as instructed per physician Keep all scheduled follow up appointments Resume medications as instructed IMPORTANT: If prescribed a Platelet Aggregation Inhibitor such as, Plavix, Brilinta or Effient: Duration of therapy is minimum one year These medications are often used in combination with Aspirin in prevention of future heart attacks Never discontinue unless consult with your Glass Smoother STROKE (CVA) Risk factors for a stroke are: Age, cigarette smoking, diabetes, excessive alcohol consumption, family history, high blood pressure, overweight, physical inactivity, prior stroke, heart attack, diagnosis of carotid artery stenosis or other artery disease. Warning signs: Sudden numbness or weakness of the face, arm or leg; especially on one side of the body, sudden confusion, trouble speaking or understanding, sudden trouble seeing in one or both eyes, sudden trouble walking, dizziness, loss of balance or coordination, sudden severe headache with no cause. Call 911 or go to the Emergency Room. CONGESTIVE HEART FAILURE: If you have been diagnosed with Congestive Heart Failure (CHF) and your symptoms return, make an appointment with your physician Weigh yourself daily. Notify your physician if you have a weight gain of two or more pounds in one day or five or more pounds in one week. If you experience any difficulty breathing, please call 911 BLEEDING: Although the risk of bleeding is minimal, it can happen. If you have any bleeding from the site, apply firm pressure above the puncture site for 10-15 minutes. If the bleeding does not stop, continue manual pressure and call 911 Contact your physician if: You develop a fever greater than 101 degrees Fahrenheit Your site becomes reddened or has any drainage You have an increase in pain or burning at the site or if a large knot forms at the site. If you experience chest pain, shortness of breath, dizziness, or extreme tiredness, stop the activity and rest. Please notify your physicians office if you experience any of these symptoms and they are not relieved by rest please call 911! Referrals: Jesse Pizano CNP [Advanced Practice Nurse] - (office will call patient at home with appointment) Anny Velez MD [Primary Care Provider] - 03/02/18 10:45 am Prescriptions: Nitroglycerin 0.4 mg SL Q5MIN PRN #25 tab.subl PRN Reason: Chest Pain Aspirin 81 mg PO DAILY #30 tab.chew Atorvastatin [Lipitor] 80 mg PO HS #30 tablet Carvedilol [Coreg] 3.125 mg PO BIDWM #60 tablet Clopidogrel [Plavix] 75 mg PO DAILY #30 tablet Lisinopril [Zestril] 2.5 mg PO DAILY #30 tablet Nicotine Patch [Nicoderm] 21 mg TD DAILY #30 patch.td24 <Ayush Lewis - Last Filed: 02/23/18 18:43> Date of Encounter: 02/23/18 - Constitutional Vitals: Temp Pulse Resp BP Pulse Ox 97.5 F L 76 17 113/61 96 02/23/18 07:37 02/23/18 07:37 02/23/18 07:37 02/23/18 07:37 02/23/18 07:37 Internal Medicine: Result - Labs CBC & Chem 7: 02/23/18 08:09 02/23/18 04:00 Labs: Short CBC 02/23/18 Range/Units 08:09 WBC 8.3 (4.3-11.1) K/mcL Hgb 12.5 L (12.9-16.9) g/dL Hct 35.9 L (37.5-50.1) % Plt Count 160 (140-400) K/mcL Neutrophils # 5.9 (1.6-8.9) K/mcL BMP 02/23/18 04:00 Sodium 132 L Potassium 3.6 Chloride 99 Carbon Dioxide 25 BUN 42 H Creatinine 1.09 Glucose 124 H Calcium 9.0 - ABG Interpretation ABG results: PT/INR, D-dimer PT 13.7 Seconds (9.4-12.1) H 02/20/18 19:01 - Attending Attestation I performed a [id number] diagnostic evaluation of this patient and my medical decision-making was reviewed with the Resident Physician, Dr Jeremiah Galvan. I agree with the documented findings, disposition and treatment plan as described except to the extent set forth below. Physical exam: Gen: NAD, AAOx3 Heart: RRR, S1S2, no murmurs Lungs: CTABL Abdomen: S, NT, + bowel sounds Advise complete smoking cessation. BUN has been trending up for the last 2 days. I was concerned of possible occult GI bleed given that the patient has been started on Plavix and heparin. Hemoglobin today was stable from yesterday at 12.5. His blood pressure has been stable. He is not tachycardic. His sodium has improved with increasing oral intake. Patient is medically stable for discharge home. I recommend close follow-up with PCP and repeat CBC and 7-14 days. Ayush Lewis MD
== END 2018-02-23 10:15 | disposition home or self-care (01) | DRG 247 ==
LOC: EMEROO 18:46 → ICNU 19:16 → 2NNU 02-21 13:11
PROVIDERS: ADMIT Internal Medicine Interventional Cardiology; ATTEND Internal Medicine Interventional Cardiology

== ENCOUNTER 2018-07-31 09:30 | Observation (INO) ==
[2018-07-31] MEDS ORDERED: 0.9 % Sodium Chloride 1,000 ML IVC ONE (10:25)
[2018-07-31] MEDS ORDERED: Ondansetron 4 MG/2 ML VIAL IVP ONE (10:25)
[2018-07-31] MEDS ORDERED: Pantoprazole 40 MG VIAL IVP ONE (10:26)
[2018-07-31] MEDS: Pantoprazole 40 MG in 0.9 % Sodium Chloride Mini Bag 100 ML IVC SCH ×2 (10:52→20:29)
[2018-07-31 10:56] LABS: Basophils # 0.1 K/mcL (0.0-0.2); Basophils % 0.7 %; Eosinophils # 0.1 K/mcL (0.0-0.6); Eosinophils % 0.7 %; Hematocrit 45.3 % (37.5-50.1); Hemoglobin 15.7 g/dL (12.9-16.9); Immature Granulocytes % 0.4 % (0-4); Lymphocytes # 1.3 K/mcL (0.6-4.6); Lymphocytes % 14.6 %; Mean Corpuscular HGB Conc 34.7 g/dL (31.6-35.5); Mean Corpuscular Hemoglobin 31.1 pg (28.0-33.3); Mean Corpuscular Volume 89.7 fL (83.0-100.0); Mean Platelet Volume 11.3 fL (9.4-12.4); Monocytes # 0.5 K/mcL (0.0-1.3); Monocytes % 5.8 %; Platelet Count 190 K/mcL (140-400); Red Blood Count 5.05 M/mcL (4.19-5.50); Red Cell Distribution Width 13.8 % (11.5-14.5); Segmented Neutrophils % 77.8 %
[2018-07-31 11:09] LABS: Alanine Aminotransferase 20 Units/L (7-52); Albumin 4.6 g/dL (3.5-5.7); Albumin/Globulin Ratio 1.7 (1.1-2.2); Alkaline Phosphatase 64 Units/L (34-104); Aspartate Amino Transferase 14 Units/L (13-39); BUN/Creatinine Ratio 27 (6-26); Bilirubin,Direct 0.2 mg/dL (0.0-0.2); Bilirubin,Indirect 0.6 mg/dL (0.0-1.2); Bilirubin,Total 0.8 mg/dL (0.3-1.0); Blood Urea Nitrogen 27 mg/dL (6-20); Calcium 11.1 mg/dL (8.6-10.3); Carbon Dioxide 27 mEq/L (23-29); Chloride 100 mEq/L (98-107); Globulin 2.7 g/dL (2.4-3.5); Glucose 247 mg/dL (70-105); Lipase 30 Units/L (11-82); Osmolality,Calculated 299 (280-300); Potassium 5.2 mEq/L (3.5-5.1); Sodium 138 mEq/L (136-145); Total Protein 7.3 g/dL (6.4-8.9); eGFR For Non-African Americans > 60 (> 60)
[2018-07-31 11:15] LABS: Prothrombin Time 11.5 Seconds (9.4-12.1)
[2018-07-31] MEDS ORDERED: Metoclopramide 10 MG/2 ML VIAL IVP STA (11:17)
[2018-07-31] MEDS ORDERED: Nitroglycerin 0.4 MG TAB.SUBL SL PRN (11:31)
[2018-07-31 11:32] LABS: Troponin I < 0.03 ng/mL (< 0.04)
--- NOTE | 2018-07-31 13:50 | Emergency Department Note ---
Disposition Clinical Impression: Abnormal EKG Hematemesis Qualifiers: Nausea presence: with nausea Qualified Code(s): K92.0 - Hematemesis Intractable nausea and vomiting Qualifiers: Vomiting type: unspecified Qualified Code(s): R11.2 - Nausea with vomiting, unspecified Disposition: Admitted As Inpatient Condition: Good General Adult HPI - General Chief complaint: ED Chest Pain Stated complaint: Vomiting blood,severe heart burn Time Seen by Provider: 07/31/18 10:08 Source: patient Mode of arrival: ambulatory Limitations: no limitations Nursing Notes Reviewed: Yes Vital Signs Reviewed: Yes - History of Present Illness HPI Narrative: Patient presents to the emergency department today for evaluation of multiple complaints. Patient was seen yesterday with in the emergency department and received workup for abdominal pain. He did have an EKG and troponin performed at the time as well as CT scan of the abdomen and pelvis. Patient was told that they wanted to bring him in for abnormal EKG findings. Patient had concern for mild elevations within the anterior leads. The patient had initial troponins drawn in the emergency department and they were negative. Patient did leave AMA. Has gone home and continued to feel worse. Patient has had continued nausea and now has had several episodes of vomiting. Patient has noticed coffee-ground emesis with in his vomit. EKG continues to show abnormal EKG findings. Not significant change from yesterday. Troponin is normal. Patient did have an elevated blood pressure upon arrival which he did not have any of his medications secondary to continued nausea and vomiting. Patient will undergo further evaluation for upper GI bleed as well as possible cardiac etiology. Pain Scale: 4 - Related Data Home Medications Medication Instructions Recorded Confirmed Insulin DETEMIR [Levemir Flextouch] 20 - 30 unit SQ HS 02/20/18 07/31/18 Metformin HCl [Glucophage] 1,000 mg PO BID 02/20/18 07/31/18 SitaGLIPtin [Januvia] 100 mg PO DAILY 02/20/18 07/31/18 Previous Rx's Medication Instructions Recorded Aspirin 81 mg PO DAILY #30 tab.chew 02/22/18 Atorvastatin [Lipitor] 80 mg PO HS #30 tablet 02/22/18 Carvedilol [Coreg] 3.125 mg PO BIDWM #60 tablet 02/22/18 Clopidogrel [Plavix] 75 mg PO DAILY #30 tablet 02/22/18 Lisinopril [Zestril] 2.5 mg PO DAILY #30 tablet 02/22/18 Nitroglycerin 0.4 mg SL Q5MIN PRN #25 tab.subl 02/22/18 Allergies Allergy/AdvReac Type Severity Reaction Status Date / Time No Known Allergies Allergy Verified 02/20/18 18:52 Review of Systems: CONSTITUTIONAL: Patient with generalized weakness and fatigue. No fevers. HEENT: Eyes: No visual changes. Ears, Nose, Throat: No hearing loss, difficulty talking or unable to swallow. SKIN: No rash or itching. CARDIOVASCULAR: Chest pain and pressure RESPIRATORY: No shortness of breath, cough or sputum. GASTROINTESTINAL: Epigastric abdominal pain with nausea and vomiting. Vomiting coffee-ground emesis. GENITOURINARY: No burning on urination or hematuria. NEUROLOGICAL: No headache, dizziness, syncope, paralysis, ataxia, numbness or tingling in the extremities. No change in bowel or bladder control. MUSCULOSKELETAL: No muscle pain, back pain, joint pain or stiffness. Past Medical History - Past Medical History Medical history: Reports: coronary artery disease, diabetes Surgical history: Reports: cataract, other Psychiatric history: Reports: no psych history - Social History Smoking Status: Current every day smoker Smokeless Tobacco Status: No Alcohol use: Reports: none Drug use: Reports: none Physical Exam General: Patient with emesis bag in hands. Mild distress secondary to nausea and generalized feeling of unwell. Head: Normocephalic Atraumatic Eyes: PERRL, EOMI ENT: Airway patent, no stridor Neck: supple Chest: Lungs clear to auscultation bilateral Cardiac: Rhythm regular Abdomen: soft, nontender, nondistended; no guarding, rebound, or tenderness to percussion Musculoskeletal: Calves symmetric, nontender Skin: No rash, normal skin tone Neuro: Alert and Oriented to person, place, and time; No focal deficit, Course - Reevaluation(s) Reevaluation #1: Patient started complaining of worsening chest pain. Repeat EKG was performed with no significant changes from previous. The patient was given nitroglycerin secondary to the chest pain as well as elevated blood pressure. Did not improve his symptoms. Reevaluation #2: Patient did have worsening chest pain while in the emergency department. She did get sublingual nitroglycerin which does not significantly improve his symptoms. Patient with 2 episodes of hematemesis. He will require further admission and observation with the hospital. CT scan was evaluated from yesterday found to be negative for acute process. Patient does not have any associated abdominal pain today. His EKG changes are persistent from yesterday. Cardiac evaluation can be further considered however less likely as his troponin has been negative both today and yesterday. - Consultations Consultation #1: Discussed with hospitalist. Patient accepted for admission. Vital Signs Temperature 97.6 F 07/31/18 09:34 Pulse Rate 84 07/31/18 09:34 Respiratory Rate 20 07/31/18 09:34 Blood Pressure 213/104 07/31/18 09:34 O2 Sat by Pulse Oximetry 99 07/31/18 09:34 Temperature 97.6 F 07/31/18 09:34 Pulse Rate 79 07/31/18 17:22 Respiratory Rate 15 07/31/18 17:22 Blood Pressure 188/88 07/31/18 17:22 O2 Sat by Pulse Oximetry 98 07/31/18 17:22 Oxygen Delivery Oxygen Delivery Room Air Medical Decision Making - Medical Records Medical records reviewed: Yes I reviewed the patient's medical records. - Lab Data Lab results reviewed: Yes I reviewed the patient's lab results. Result diagrams: 07/31/18 10:25 07/31/18 10:25 Lab Results 07/31/18 07/31/18 07/31/18 Range/Units 10:25 10:25 10:25 WBC 9.0 (4.3-11.1) K/mcL RBC 5.05 (4.19-5.50) M/mcL Hgb 15.7 D (12.9-16.9) g/dL Hct 45.3 (37.5-50.1) % MCV 89.7 (83.0-100.0) fL MCH 31.1 (28.0-33.3) pg MCHC 34.7 (31.6-35.5) g/dL RDW 13.8 (11.5-14.5) % Plt Count 190 (140-400) K/mcL MPV 11.3 (9.4-12.4) fL Immature Gran % 0.4 (0-4) % Seg Neutrophils % 77.8 % Lymphocytes % 14.6 % Monocytes % 5.8 % Eosinophils % 0.7 % Basophils % 0.7 % Neutrophils # 7.0 (1.6-8.9) K/mcL Lymphocytes # 1.3 (0.6-4.6) K/mcL Monocytes # 0.5 (0.0-1.3) K/mcL Eosinophils # 0.1 (0.0-0.6) K/mcL Basophils # 0.1 (0.0-0.2) K/mcL PT 11.5 (9.4-12.1) Seconds INR 1.0 Sodium 138 (136-145) mEq/L Potassium 5.2 H (3.5-5.1) mEq/L Chloride 100 (98-107) mEq/L Carbon Dioxide 27 (23-29) mEq/L BUN 27 H (6-20) mg/dL Creatinine 1.00 (0.70-1.30) mg/dL Est GFR ( Amer) > 60 (> 60) Est GFR (Non-Af Amer) > 60 (> 60) BUN/Creatinine Ratio 27 H (6-26) Glucose 247 H (70-105) mg/dL Calculated Osmolality 299 (280-300) Calcium 11.1 H (8.6-10.3) mg/dL Total Bilirubin 0.8 (0.3-1.0) mg/dL Direct Bilirubin 0.2 (0.0-0.2) mg/dL Indirect Bilirubin 0.6 (0.0-1.2) mg/dL AST 14 (13-39) Units/L ALT 20 (7-52) Units/L Alkaline Phosphatase 64 (34-104) Units/L Troponin I < 0.03 (< 0.04) ng/mL Serum Total Protein 7.3 (6.4-8.9) g/dL Albumin 4.6 (3.5-5.7) g/dL Globulin 2.7 (2.4-3.5) g/dL Albumin/Globulin Ratio 1.7 (1.1-2.2) Lipase 30 (11-82) Units/L Urine Color (Yellow) Urine Clarity (Clear) Urine pH (5.0-8.0) pH Units Ur Specific [place] (1.010-1.025) Urine Protein (Neg-Trace) mg/dL Urine Glucose (UA) (Normal) mg/dL Urine Ketones (Negative) mg/dL Urine Blood (Negative) Urine Nitrite (Negative) Urine Bilirubin (Negative) Urine Urobilinogen (Normal) mg/dL Ur Leukocyte Esterase (Negative) Urine Microscopic RBC (0-3) per hpf Urine Microscopic WBC (0-3) per hpf Ur Squamous Epith Cells (None-Few) per lpf Urine Bacteria (None-Few) per hpf Hyaline Casts (None-Few) per lpf Ur Culture Indicated? (NO) 07/31/18 Range/Units 13:40 WBC (4.3-11.1) K/mcL RBC (4.19-5.50) M/mcL Hgb (12.9-16.9) g/dL Hct (37.5-50.1) % MCV (83.0-100.0) fL MCH (28.0-33.3) pg MCHC (31.6-35.5) g/dL RDW (11.5-14.5) % Plt Count (140-400) K/mcL MPV (9.4-12.4) fL Immature Gran % (0-4) % Seg Neutrophils % % Lymphocytes % % Monocytes % % Eosinophils % % Basophils % % Neutrophils # (1.6-8.9) K/mcL Lymphocytes # (0.6-4.6) K/mcL Monocytes # (0.0-1.3) K/mcL Eosinophils # (0.0-0.6) K/mcL Basophils # (0.0-0.2) K/mcL PT (9.4-12.1) Seconds INR Sodium (136-145) mEq/L Potassium (3.5-5.1) mEq/L Chloride (98-107) mEq/L Carbon Dioxide (23-29) mEq/L BUN (6-20) mg/dL Creatinine (0.70-1.30) mg/dL Est GFR ( Amer) (> 60) Est GFR (Non-Af Amer) (> 60) BUN/Creatinine Ratio (6-26) Glucose (70-105) mg/dL Calculated Osmolality (280-300) Calcium (8.6-10.3) mg/dL Total Bilirubin (0.3-1.0) mg/dL Direct Bilirubin (0.0-0.2) mg/dL Indirect Bilirubin (0.0-1.2) mg/dL AST (13-39) Units/L ALT (7-52) Units/L Alkaline Phosphatase (34-104) Units/L Troponin I (< 0.04) ng/mL Serum Total Protein (6.4-8.9) g/dL Albumin (3.5-5.7) g/dL Globulin (2.4-3.5) g/dL Albumin/Globulin Ratio (1.1-2.2) Lipase (11-82) Units/L Urine Color Yellow (Yellow) Urine Clarity Clear (Clear) Urine pH 7.0 (5.0-8.0) pH Units Ur Specific [place] 1.019 (1.010-1.025) Urine Protein 100 H (Neg-Trace) mg/dL Urine Glucose (UA) 500 H (Normal) mg/dL Urine Ketones 40 H (Negative) mg/dL Urine Blood Small H (Negative) Urine Nitrite Negative (Negative) Urine Bilirubin Negative (Negative) Urine Urobilinogen Normal (Normal) mg/dL Ur Leukocyte Esterase Negative (Negative) Urine Microscopic RBC 5-15 H (0-3) per hpf Urine Microscopic WBC 0-3 (0-3) per hpf Ur Squamous Epith Cells Moderate H (None-Few) per lpf Urine Bacteria None Seen (None-Few) per hpf Hyaline Casts None Seen (None-Few) per lpf Ur Culture Indicated? NO (NO) - Radiology Data Radiology results reviewed: Yes I reviewed the patient's radiology results. - EKG Data EKG #1 EKG attestation: Yes I reviewed and interpreted this EKG. EKG results narrative: EKG shows sinus rhythm with ventricular rate of 81. [place] 163. QRS 85. QTC 376. Patient EKG changes are similar to previous EKG of 07/30/2018.
[2018-07-31 13:51] LABS: Bilirubin,Urine Negative (Negative); Blood,Urine Small (Negative); Clarity,Urine Clear (Clear); Color,Urine Yellow (Yellow); Glucose,Urine (UA) 500 mg/dL (Normal); Ketones,Urine 40 mg/dL (Negative); Leukocyte Esterase,Urine Negative (Negative); Nitrite,Urine Negative (Negative); Protein,Urine 100 mg/dL (Neg-Trace); Specific Gravity,Urine 1.019 (1.010-1.025); Urobilinogen,Urine Normal (Normal)
[2018-07-31 13:54] LABS: Bacteria,Urine None Seen per hpf (None-Few); Hyaline Casts,Urine None Seen per lpf (None-Few); Squamous Epithelial Cell,Urine Moderate per lpf (None-Few); WBC,Urine 0-3 per hpf (0-3)
[2018-07-31] MEDS ORDERED: Ondansetron 4 MG/2 ML VIAL IVP STA (15:04)
[2018-07-31] MEDS ORDERED: GI Cocktail 40 ML EACH PO ONE (15:05)
[2018-07-31] MEDS ORDERED: Naloxone 0.4 MG/ML INJ IVP PRN (16:11)
--- NOTE | 2018-07-31 16:56 | Internal Med History&Physical ---
<Jay Marte T - Last Filed: 07/31/18 17:35> Date of Encounter: 07/31/18 Internal Medicine - H&P: HPI History of present illness: Mr. Yin is a 57 year old male Internal Medicine - H&P: Meds Insulin DETEMIR [Levemir Flextouch] 20 - 30 unit SQ HS 02/20/18 [History] Metformin HCl [Glucophage] 1,000 mg PO BID 02/20/18 [History] SitaGLIPtin [Januvia] 100 mg PO DAILY 02/20/18 [History] Aspirin 81 mg PO DAILY #30 tab.chew 02/22/18 [Rx] Atorvastatin [Lipitor] 80 mg PO HS #30 tablet 02/22/18 [Rx] Carvedilol [Coreg] 3.125 mg PO BIDWM #60 tablet 02/22/18 [Rx] Clopidogrel [Plavix] 75 mg PO DAILY #30 tablet 02/22/18 [Rx] Lisinopril [Zestril] 2.5 mg PO DAILY #30 tablet 02/22/18 [Rx] Nitroglycerin 0.4 mg SL Q5MIN PRN #25 tab.subl 02/22/18 [Rx] 3 Allergy/AdvReac Type Severity Reaction Status Date / Time No Known Allergies Allergy Verified 02/20/18 18:52 All Systems PM: A 10-system review of systems was performed and is negative for pertinent findings except as documented above in the HPI. - Constitutional Vitals: Temp Pulse Resp BP Pulse Ox 97.6 F 79 15 188/88 98 07/31/18 09:34 07/31/18 17:22 07/31/18 17:22 07/31/18 17:22 07/31/18 17:22 Internal Med - H&P Results - Labs CBC & Chem 7: 07/31/18 10:25 07/31/18 10:25 - Assessment and plan (1) Diabetes mellitus Current Visit: No Status: Chronic Qualifiers: Diabetes mellitus type: type 2 Diabetes mellitus prison insulin use: with intermission coordinator use Diabetes mellitus complication status: without complication Qualified Code(s): E11.9 - Type 2 diabetes mellitus without complications; Z79.4 - terminal manager (current) use of insulin (2) Hematemesis Current Visit: Yes Status: Acute Qualifiers: Nausea presence: with nausea Qualified Code(s): K92.0 - Hematemesis (3) Hypertension Current Visit: Yes Status: Chronic Qualifiers: Hypertension type: unspecified Qualified Code(s): I10 - Essential (primary ) hypertension (4) Burning chest pain Current Visit: Yes Status: Acute - Time Spent With Patient Total time spent is greater than 50% in coordination of care (as documented) at patient's floor/unit and/or counseling patient: - Attending Attestation I have independently seen and reviewed this patient, and agree with the plan of management as documented by JUSTINA Olvera <Jalil Olvera P - Last Filed: 07/31/18 17:45> Date of Encounter: 07/31/18 Time of Encounter: 16:00 Internal Medicine - H&P: HPI Chief complaint: Hematemesis Admitted From: Home Plans for Post Hospital Care: Home History of present illness: Mr. Yin is a 57 year old male with past medical history significant for CAD with stent placement 4 months ago, diabetes, hypertension, and hyperlipidemia who presents for 5 day history of intermittent nausea and vomiting. Reports 2 episodes of hematemesis today only. Patient and report emesis of coffee ground consistency. Was seen in ER yesterday for same and left AMA. ER workup yesterday included CT of abdomen/pelvis and troponin, both were normal. States his nausea and vomiting is accompanied by burning chest pain worse after vomiting. Denies shortness of breath, abdominal pain, diaphoresis, diarrhea, or fever. Last bowel movement was Monday and normal per patient. Reports decreased oral intake with nausea and vomiting including difficulty taking his home medications. Denies any current treatment. Symptoms are worsened with oral intake, however patient states he was able to tolerate PO intake yesterday without any nausea or vomiting. Follows up regulary with [facility], most recent visit last month with follow up now being spaced out every 6 months. Reports symptoms are much improved after Zofran in ER and has had no epsiodes of vomiting since arriving to ER. Past Med Surg Social Fam HX - Past Medical History Medical history: coronary artery disease, diabetes Psychiatric history: no psych history - Past Surgical History Surgical History: cataract, other Additional surgical history: perirectal abscess - Social History Smoking Status: Current every day smoker Smokeless Tobacco Status: No Alcohol use: none Drug use: none - Family History Father Living Status: Hx Family Cardiac Disorders: Yes All Systems PM: A 10-system review of systems was performed and is negative for pertinent findings except as documented above in the HPI. - Constitutional Vitals: Temp Pulse Resp BP Pulse Ox 97.6 F 78 15 188/88 98 07/31/18 09:34 07/31/18 14:13 07/31/18 14:13 07/31/18 14:13 07/31/18 14:13 Exam: General: Alert and oriented. Skin:Normal color, no rash, no lesions. HEENT:EOM, pupils equal, round and reactive. Cardiovascular:Normal S1 & S2, no rubs, murmurs or gallops. No JVD. Pulse regular. Lungs:Normal breath sounds, no wheezes or crackles. Abdomen:Soft, non-tender, no rigidity, hypoactive bowel sounds. Extremities:No deformity, no edema or tenderness, no joint swelling or clubbing. Neurological:Normal cognition and motor skills. Pulses:Carotid and radial pulses normal +2. Rest of the physical exam is non contributory. Internal Med - H&P Results - Labs CBC & Chem 7: 07/31/18 10:25 07/31/18 10:25 - Assessment and plan (1) Hematemesis Current Visit: Yes Status: Acute Assessment and plan: GI consulted. Protonix dose administered in ER, will continue BID. Fecal occult ordered. Repeat labs in a.m. Zofran q6 PRN. Maintenance IV fluids at 100ml/hr. Clear liquid diet. Qualifiers: Nausea presence: with nausea Qualified Code(s): K92.0 - Hematemesis (2) Hypertension Current Visit: Yes Status: Chronic Assessment and plan: Home medications not taken today due to nausea/vomiting. Continue home medications now. Qualifiers: Hypertension type: unspecified Qualified Code(s): I10 - Essential (primary ) hypertension (3) Burning chest pain Current Visit: Yes Status: Acute Assessment and plan: Continuous cardiac monitoring. Initial troponin negative in ER, will order serial troponins. (4) Diabetes mellitus Current Visit: No Status: Chronic Assessment and plan: Accu check ACHS. Continue home medications. Qualifiers: Diabetes mellitus type: type 2 Diabetes mellitus prison insulin use: with intermission coordinator use Diabetes mellitus complication status: without complication Qualified Code(s): E11.9 - Type 2 diabetes mellitus without complications; Z79.4 - terminal manager (current) use of insulin - Time Spent With Patient Total time spent is greater than 50% in coordination of care (as documented) at patient's floor/unit and/or counseling patient:
[2018-07-31] MEDS: 0.9 % Sodium Chloride 1,000 ML IVC SCH (20:25)
[2018-07-31] MEDS: Pantoprazole 40 MG VIAL IVP SCH (20:30)
[2018-07-31] MEDS: *HR* SitaGLIPtin 100 MG TABLET PO SCH (21:44)
[2018-07-31] MEDS: *HR* Metformin 500 MG TABLET PO SCH (21:44)
[2018-07-31] MEDS: Insulin DETEMIR 100 UNIT/ML X5UNITS SQ SCH (22:06)
--- NOTE | 2018-07-31 22:34 | Event Note ---
Date of Encounter: 07/31/18 Time of Encounter: 19:00 Notified by nurse of second troponin elevated from 0.03 to 0.05, and discussed with Dr Marte. Patient with no new complaints, denies chest pain, states he feels better than currently than at admission. Third troponin ordered for 2345 tonight.
[2018-08-01 00:51] LABS: Basophils % 0.4 %; Eosinophils % 0.1 %; Hematocrit 36.4 % (37.5-50.1); Immature Granulocytes % 0.4 % (0-4); Lymphocytes # 2.1 K/mcL (0.6-4.6); Lymphocytes % 24.9 %; Mean Corpuscular HGB Conc 34.1 g/dL (31.6-35.5); Mean Corpuscular Hemoglobin 30.3 pg (28.0-33.3); Mean Platelet Volume 11.6 fL (9.4-12.4); Monocytes # 0.9 K/mcL (0.0-1.3); Monocytes % 10.8 %; Neutrophils # 5.3 K/mcL (1.6-8.9); Platelet Count 157 K/mcL (140-400); Red Blood Count 4.09 M/mcL (4.19-5.50); Red Cell Distribution Width 13.9 % (11.5-14.5); Segmented Neutrophils % 63.4 %
[2018-08-01 01:03] LABS: Hemoglobin 12.4 g/dL (12.9-16.9)
[2018-08-01 01:28] LABS: BUN/Creatinine Ratio 27 (6-26); Blood Urea Nitrogen 27 mg/dL (6-20); Calcium 8.8 mg/dL (8.6-10.3); Carbon Dioxide 27 mEq/L (23-29); Chloride 101 mEq/L (98-107); Glucose 279 mg/dL (70-105); Osmolality,Calculated 295 (280-300); Potassium 4.1 mEq/L (3.5-5.1); Sodium 135 mEq/L (136-145); eGFR For Non-African Americans > 60 (> 60)
[2018-08-01] MEDS: Pantoprazole 40 MG in 0.9 % Sodium Chloride Mini Bag 100 ML IVC SCH ×3 (01:32→10:50)
[2018-08-01] MEDS: Pantoprazole 40 MG VIAL IVP SCH ×2 (06:08→17:16)
[2018-08-01] MEDS: 0.9 % Sodium Chloride 1,000 ML IVC SCH (06:12)
--- NOTE | 2018-08-01 06:14 | Electrocardiograph Report ---
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
--- NOTE | 2018-08-01 06:15 | Electrocardiograph Report ---
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
[2018-08-01] MEDS: Aspirin 81 MG TAB.CHEW PO SCH (08:45)
[2018-08-01] MEDS: *HR* Metformin 500 MG TABLET PO SCH (08:45)
[2018-08-01] MEDS: Ondansetron 4 MG/2 ML VIAL IVP PRN ×2 (08:51→18:07)
[2018-08-01] MEDS: *HR* SitaGLIPtin 100 MG TABLET PO SCH (09:46)
[2018-08-01] MEDS ORDERED: Dextrose Gel 15 GM/37.5 ML TUBE PO PRN ×2 (10:11)
[2018-08-01] MEDS ORDERED: *HR* Dextrose 50 % in Water (Syg) 50 ML SYRINGE IVP PRN (10:11)
[2018-08-01] MEDS ORDERED: D5% in Water 1,000 ML IVC PRN (10:11)
--- NOTE | 2018-08-01 11:40 | Gastroenterology Consult Note ---
<Primitivo Bah - Last Filed: 08/01/18 11:38> Date of Encounter: 08/01/18 Time of Encounter: 10:10 - Assessment and plan (1) Hematemesis Current Visit: Yes Status: Acute Assessment and plan: Hgb on admission 15.7 and today Hgb 12.4. No further episodes of hematemesis. Plan for EGD today to r/o esophagitis, gastritis, duodenitis, PUD, MW tear, or AVM. Keep patient NPO for scope today. Continue PPI. Qualifiers: Nausea presence: with nausea Qualified Code(s): K92.0 - Hematemesis - Time Spent With Patient Total time spent is greater than 50% in coordination of care (as documented) at patient's floor/unit and/or counseling patient: GI History of Present Illness - Data of Consult Patient: new to practice Consult date: 08/01/18 Requesting Physician: Maricarmen Diop MD - Consult Narrative Reason for consult: Hematemesis History of present illness: Mr. Yin is a 57 year old male with PMHx of CAD with stent placement 4 months ago, DM, HTN, HLD who presents for 5 day history of intermittent nausea and vomiting with 2 episodes of hematemesis the day of admission. He was seen in the ED on 07/30 for same complaint but left AMA. CT A/P on 07/30 was normal. He states his nausea and vomiting is accompanied by burning chest pain worse after vomiting. Troponins were negative. His symptoms improved after receiving Zofran in the ED. Procedures: Colonoscopy 09/10/2010 Dr. Rodriguez: Serrated adenoma in proximal transverse colon, sessile adenomatous in transvers colon, tubular adenoma in descending colon, hyperplastic polyp in rectum. NSAIDs: ASA Anticoagulation: Plavix Past Med Surg Social Fam HX - Past Medical History Medical history: coronary artery disease, diabetes Psychiatric history: no psych history - Past Surgical History Surgical History: cataract, other Additional surgical history: perirectal abscess - Social History Smoking Status: Current every day smoker Smokeless Tobacco Status: No Alcohol use: none Drug use: none - Family History Father Living Status: Age at : 85 Cause of : dementia Hx Family Cardiac Disorders: Yes Hx Family Respiratory Disorders: No Hx Family Cancer: Yes Hx Family GI Disorders: Yes Hx Family Genitourinary Disorders: No Hx Family Endocrine Disorder: No Hx Family Musculoskeletal Disorders: No Hx Family Neuromuscular Disorders: No Hx Family Neurologic Disorders: No Hx Family HEENT Disorders: No Hx Family Autoimmune Disorders: No Hx Family Reproductive Disorders: No Hx Family Psychosocial Disorders: No - Gastrointestinal Gastrointestinal: Present: as per HPI - Constitutional Constitutional: as per HPI - EENT Eyes: as per HPI Ears: Present: as per HPI Nose, mouth and throat: Present: as per HPI - Cardiovascular Cardiovascular ROS: Present: as per HPI - Respiratory Respiratory IM: Present: as per HPI - Genitourinary Genitourinary: Absent: change in color, Urinary frequency - Neurological ROS Neurological GI: Present: as per HPI - Hematologic/Lymphatic Hematologic/Lymphatic pediatric: Present: as per HPI - Musculoskeletal Musculoskeletal ROS GI: Present: as per HPI - Integumentary Integumentary GI: Present: as per HPI - Psychiatric ROS Psychiatric GI: Present: as per HPI - Endocrine Endocrine IM: Present: as per HPI - Constitutional Vitals: Temp Pulse Resp BP Pulse Ox 97.8 F 72 14 191/89 94 08/01/18 10:31 08/01/18 10:31 08/01/18 10:31 08/01/18 10:31 08/01/18 10:31 General appearance: Present: cooperative, A&O X 3, no acute distress, answers questions appropriately - Head Head exam: Present: atraumatic, normocephalic - Eye Eye exam: Present: normal appearance, sclera anicteric - ENT ENT exam: Present: mucous membranes dry - Neck Neck exam general surgery: Present: normal inspection, trachea midline - Respiratory Respiratory exam: Present: CTAB. Absent: rales, rhonchi - Cardiovascular Cardiovascular exam: Present: RRR, +S1, +S2 - GI/Abdominal GI/Abdominal exam: Present: normal bowel sounds, soft, no peritoneal signs. Absent: distended, firm, guarding, tenderness - Rectal Rectal exam: Present: deferred - Extremities Exam Extremities exam: Present: warm - Neurological Exam Neurological exam: Present: no focal deficits - Psychiatric Psychiatric exam: Present: normal affect, normal mood - Skin Skin exam: Present: dry, intact, normal color, warm Results - Labs CBC & Chem 7: 08/01/18 00:04 08/01/18 00:04 Labs: Last Result Calcium 8.8 mg/dL (8.6-10.3) 08/01/18 00:04 Troponin I 0.03 ng/mL (< 0.04) 08/01/18 06:08 Entire Visit Hgb 12.4 g/dL (12.9-16.9) L D 08/01/18 00:04 Hct 36.4 % (37.5-50.1) L 08/01/18 00:04 PT 11.5 Seconds (9.4-12.1) 07/31/18 10:25 Total Bilirubin 0.8 mg/dL (0.3-1.0) 07/31/18 10:25 AST 14 Units/L (13-39) 07/31/18 10:25 ALT 20 Units/L (7-52) 07/31/18 10:25 Lipase 30 Units/L (11-82) 07/31/18 10:25 - ABG ABG results: PT/INR, D-dimer PT 11.5 Seconds (9.4-12.1) 07/31/18 10:25 Consult Discharge Plan - Plan Referrals: Anny Velez MD [Primary Care Provider] - <Ale Dupree - Last Filed: 08/01/18 17:50> Date of Encounter: 08/01/18 Time of Encounter: 14:00 - Time Spent With Patient Total time spent is greater than 50% in coordination of care (as documented) at patient's floor/unit and/or counseling patient: GI History of Present Illness - Data of Consult Requesting Physician: Maricarmen Diop MD - Consult Narrative History of present illness: Mr. Yin is a 57 year old male - Constitutional Vitals: Temp Pulse Resp BP Pulse Ox 98.4 F 68 18 97/59 93 08/01/18 14:23 08/01/18 17:13 08/01/18 17:13 08/01/18 17:13 08/01/18 17:13 Results - Labs CBC & Chem 7: 08/01/18 00:04 08/01/18 00:04 Labs: Last Result Calcium 8.8 mg/dL (8.6-10.3) 08/01/18 00:04 Troponin I 0.03 ng/mL (< 0.04) 08/01/18 06:08 Entire Visit Hgb 12.4 g/dL (12.9-16.9) L D 08/01/18 00:04 Hct 36.4 % (37.5-50.1) L 08/01/18 00:04 PT 11.5 Seconds (9.4-12.1) 07/31/18 10:25 Total Bilirubin 0.8 mg/dL (0.3-1.0) 07/31/18 10:25 AST 14 Units/L (13-39) 07/31/18 10:25 ALT 20 Units/L (7-52) 07/31/18 10:25 Lipase 30 Units/L (11-82) 07/31/18 10:25 - ABG ABG results: PT/INR, D-dimer PT 11.5 Seconds (9.4-12.1) 07/31/18 10:25 - Attending Attestation I have personally performed a face to face evaluation on this patient. I have reviewed and agree with the care plan. History and Exam by me shows: Patient seen. Per patient he is feeling crapy and nauseated. On examination abdomen is benign. Assessment: Patient with upper GI symptoms with hematemesis. Currently hemoglobin is stable. Recommendation: EGD to rule out esophagitis gastritis Nayeli-Kendrick tear etc.
[2018-08-01] MEDS: Insulin LISPRO 300 UNITS/3 ML VIAL SQ SCH ×2 (12:11→17:14)
[2018-08-01] MEDS ORDERED: Lidocaine -MPF 2% 2 ML VIAL ONE (13:05)
--- NOTE | 2018-08-01 13:17 | Internal Med Progress Note ---
Hospitalist Progress Note - Encounter Date of Encounter: 08/01/18 Time of Encounter: 08:00 - Subjective Interval History: Patient reports that he is feeling much better, denies nausea, vomiting, hematemesis since he has been admitted. Denies abdominal pain, hematochezia, melena. Denies chest pain, shortness of breath, palpitations, constipation or diarrhea. No events overnight, pain is controlled. Tolerated clear liquid diets last night. - Exam Vitals: Temp Pulse Resp BP Pulse Ox 97.8 F 72 14 191/89 94 08/01/18 10:31 08/01/18 10:31 08/01/18 10:31 08/01/18 10:31 08/01/18 10:31 Exam: General: Patient is alert, oriented, no acute distress, Head: atraumatic, normocephalic, Eye: normal appearance, PERRL, no scleral icterus, no conjunctival injection ENT: mucous membranes moist, normal external ear exam Neck: normal inspection, trachea midline, full ROM, no carotid bruits Chest: normal inspection, symmetric chest rise Respiratory: Good respiratory effort. Bilateral breath sounds are clear without wheezing, crackles, or rhonchi. Cardiovascular: Regular rate and rhythm. s1 and s2 No clicks, rubs, gallops, or murmors. Abdomen: Bowel sounds present normoactive x-4 quadrants. Abdomen is soft, nondistended. no Epigastric tenderness. No guarding or rebound. No organomegaly noted, obese musculoskeletal: Spontaneously moving all extremities. no edema, no calf tenderness Skin: warm, dry, intact. Neuro: Alert and oriented x4. Sensation light touch intact. Cranial nerves 2- 12 is intact. Not aphasic, gait is steady, rapid hand movements intact, finger- to-nose intact, Psych: Patient's affect is normal - Assessment and Plan (1) Hematemesis Current Visit: Yes Status: Acute Assessment and Plan: Secondary to peptic ulcer disease versus Nayeli-Kendrick tear from repeated retching cannot rule out underlying malignancy GI consulted. IV Protonix Fecal occult - pending Hemoglobin trended down from 15.7-12.4 Vital signs remained stable GI was consulted nothing by mouth for endoscopy Zofran q6 PRN. Maintenance IV fluids at 100ml/hr. watch for overload We will continue his aspirin and Plavix as hemoglobin is above 8 and he has had recent stent placement Type and screen Transfuse less than 8 Procedures: Colonoscopy 09/10/2010 Dr. Rodriguez: Serrated adenoma in proximal transverse colon, sessile adenomatous in transvers colon, tubular adenoma in descending colon, hyperplastic polyp in rectum. (2) Elevated troponin Current Visit: Yes Status: Acute Assessment and Plan: Most likely secondary to supply versus demand mismatch in setting of coronary artery disease Mildly elevated at 0.05 and 0.04 on admission subsequent troponins were less than 0.03 He does not have active chest pain EKG on 07/31 shows sinus rhythm with PVCs no acute ST-T abnormalities On aspirin and Plavix Continue cardiac monitoring (3) Diabetes mellitus Current Visit: No Status: Chronic Assessment and Plan: Accu check ACHS. Continue home medications. (4) Hypertension Current Visit: Yes Status: Chronic Assessment and Plan: . Was restarted on home medications, beta cain and holland We will continue to follow vital signs DVT Prophylaxis: SCD - Time Spent with Patient Total time spent is greater than 50% in coordination of care (as documented) at patient's floor/unit and/or counseling patient: Internal Medicine: Result - Labs CBC & Chem 7: 08/01/18 00:04 08/01/18 00:04 Labs: Short CBC 08/01/18 Range/Units 00:04 WBC 8.4 (4.3-11.1) K/mcL Hgb 12.4 L D (12.9-16.9) g/dL Hct 36.4 L (37.5-50.1) % Plt Count 157 (140-400) K/mcL Neutrophils # 5.3 (1.6-8.9) K/mcL BMP 08/01/18 00:04 Sodium 135 L Potassium 4.1 Chloride 101 Carbon Dioxide 27 BUN 27 H Creatinine 1.00 Glucose 279 H Calcium 8.8 Cardiac Enzymes 07/31/18 08/01/18 08/01/18 Range/Units 17:45 00:04 06:08 Troponin I 0.05 H* 0.04 H* 0.03 (< 0.04) ng/mL - ABG Interpretation ABG results: PT/INR, D-dimer PT 11.5 Seconds (9.4-12.1) 07/31/18 10:25 Consult Discharge Plan - Plan Referrals: Anny Velez MD [Primary Care Provider] - (1) Hematemesis Qualifiers: Nausea presence: with nausea Qualified Code(s): K92.0 - Hematemesis (3) Diabetes mellitus Qualifiers: Diabetes mellitus type: type 2 Diabetes mellitus lobsterman insulin use: with lobsterman use Diabetes mellitus complication status: without complication Qualified Code(s): E11.9 - Type 2 diabetes mellitus without complications; Z79.4 - correction (current) use of insulin (4) Hypertension Qualifiers: Hypertension type: unspecified Qualified Code(s): I10 - Essential (primary) hypertension
--- NOTE | 2018-08-01 13:39 | Anesthesia Evaluation PreOp ---
Date of Encounter: 08/01/18 Time of Encounter: 13:37 - Past History Planned Operation: EGD Cardiac History: CO (02/11), HTN, Hyperlipidemia, Cardiac Stent (02/11), Other ( CAD) Pulmonary History: Smoker QM CONSULTANT History: Denies Any Significant HX Other Medical History: Bleeding (HEMATEMESIS), Diabetes Type II Alcohol Use: none Drug use: none Medications and Allergies Insulin DETEMIR [Levemir Flextouch] 20 - 30 unit SQ HS 02/20/18 [History] Metformin HCl [Glucophage] 1,000 mg PO BID 02/20/18 [History] SitaGLIPtin [Januvia] 100 mg PO DAILY 02/20/18 [History] Aspirin 81 mg PO DAILY #30 tab.chew 02/22/18 [Rx] Atorvastatin [Lipitor] 80 mg PO HS #30 tablet 02/22/18 [Rx] Carvedilol [Coreg] 3.125 mg PO BIDWM #60 tablet 02/22/18 [Rx] Clopidogrel [Plavix] 75 mg PO DAILY #30 tablet 02/22/18 [Rx] Lisinopril [Zestril] 2.5 mg PO DAILY #30 tablet 02/22/18 [Rx] Nitroglycerin 0.4 mg SL Q5MIN PRN #25 tab.subl 02/22/18 [Rx] 3 Allergy/AdvReac Type Severity Reaction Status Date / Time No Known Allergies Allergy Verified 02/20/18 18:52 - Meds/Allergy Pre-op Review Medications Reviewed: Yes Allergies Reviewed: Yes Beta Blockers on Current Med List: Yes If Beta Blockers taken, Date/Time (Last Dose taken): 0842 Anesthesia Results - Labs 08/01/18 00:04 08/01/18 00:04 Laboratory Last Values WBC 8.4 K/mcL (4.3-11.1) 08/01/18 00:04 RBC 4.09 M/mcL (4.19-5.50) L 08/01/18 00:04 Hgb 12.4 g/dL (12.9-16.9) L D 08/01/18 00:04 Hct 36.4 % (37.5-50.1) L 08/01/18 00:04 MCV 89.0 fL (83.0-100.0) 08/01/18 00:04 MCH 30.3 pg (28.0-33.3) 08/01/18 00:04 MCHC 34.1 g/dL (31.6-35.5) 08/01/18 00:04 RDW 13.9 % (11.5-14.5) 08/01/18 00:04 Plt Count 157 K/mcL (140-400) 08/01/18 00:04 MPV 11.6 fL (9.4-12.4) 08/01/18 00:04 Immature Gran % 0.4 % (0-4) 08/01/18 00:04 Seg Neutrophils % 63.4 % 08/01/18 00:04 Lymphocytes % 24.9 % 08/01/18 00:04 Monocytes % 10.8 % 08/01/18 00:04 Eosinophils % 0.1 % 08/01/18 00:04 Basophils % 0.4 % 08/01/18 00:04 Neutrophils # 5.3 K/mcL (1.6-8.9) 08/01/18 00:04 Lymphocytes # 2.1 K/mcL (0.6-4.6) 08/01/18 00:04 Monocytes # 0.9 K/mcL (0.0-1.3) 08/01/18 00:04 Eosinophils # 0.0 K/mcL (0.0-0.6) 08/01/18 00:04 Basophils # 0.0 K/mcL (0.0-0.2) 08/01/18 00:04 PT 11.5 Seconds (9.4-12.1) 07/31/18 10:25 INR 1.0 07/31/18 10:25 Sodium 135 mEq/L (136-145) L 08/01/18 00:04 Potassium 4.1 mEq/L (3.5-5.1) 08/01/18 00:04 Chloride 101 mEq/L (98-107) 08/01/18 00:04 Carbon Dioxide 27 mEq/L (23-29) 08/01/18 00:04 BUN 27 mg/dL (6-20) H 08/01/18 00:04 Creatinine 1.00 mg/dL (0.70-1.30) 08/01/18 00:04 Est GFR ( Amer) > 60 (> 60) 08/01/18 00:04 Est GFR (Non-Af Amer) > 60 (> 60) 08/01/18 00:04 BUN/Creatinine Ratio 27 (6-26) H 08/01/18 00:04 Glucose 279 mg/dL (70-105) H 08/01/18 00:04 POC Glucose 132 mg/dL (70-99) H 08/01/18 07:10 Calculated Osmolality 295 (280-300) 08/01/18 00:04 Calcium 8.8 mg/dL (8.6-10.3) 08/01/18 00:04 Total Bilirubin 0.8 mg/dL (0.3-1.0) 07/31/18 10:25 Direct Bilirubin 0.2 mg/dL (0.0-0.2) 07/31/18 10:25 Indirect Bilirubin 0.6 mg/dL (0.0-1.2) 07/31/18 10:25 AST 14 Units/L (13-39) 07/31/18 10:25 ALT 20 Units/L (7-52) 07/31/18 10:25 Alkaline Phosphatase 64 Units/L (34-104) 07/31/18 10:25 Troponin I 0.03 ng/mL (< 0.04) 08/01/18 06:08 Serum Total Protein 7.3 g/dL (6.4-8.9) 07/31/18 10:25 Albumin 4.6 g/dL (3.5-5.7) 07/31/18 10:25 Globulin 2.7 g/dL (2.4-3.5) 07/31/18 10:25 Albumin/Globulin Ratio 1.7 (1.1-2.2) 07/31/18 10:25 Lipase 30 Units/L (11-82) 07/31/18 10:25 Urine Color Yellow (Yellow) 07/31/18 13:40 Urine Clarity Clear (Clear) 07/31/18 13:40 Urine pH 7.0 pH Units (5.0-8.0) 07/31/18 13:40 Ur Specific [place] 1.019 (1.010-1.025) 07/31/18 13:40 Urine Protein 100 mg/dL (Neg-Trace) H 07/31/18 13:40 Urine Glucose (UA) 500 mg/dL (Normal) H 07/31/18 13:40 Urine Ketones 40 mg/dL (Negative) H 07/31/18 13:40 Urine Blood Small (Negative) H 07/31/18 13:40 Urine Nitrite Negative (Negative) 07/31/18 13:40 Urine Bilirubin Negative (Negative) 07/31/18 13:40 Urine Urobilinogen Normal mg/dL (Normal) 07/31/18 13:40 Ur Leukocyte Esterase Negative (Negative) 07/31/18 13:40 Urine Microscopic RBC 5-15 per hpf (0-3) H 07/31/18 13:40 Urine Microscopic WBC 0-3 per hpf (0-3) 07/31/18 13:40 Ur Squamous Epith Cells Moderate per lpf (None-Few) H 07/31/18 13:40 Urine Bacteria None Seen per hpf (None-Few) 07/31/18 13:40 Hyaline Casts None Seen per lpf (None-Few) 07/31/18 13:40 Ur Culture Indicated? NO (NO) 07/31/18 13:40 Anesthesia Exam Vital Signs/O2 Sat/Glucose, Most Recent Temp Pulse Resp BP Pulse Ox 98.2 F 75 18 196/91 100 08/01/18 13:36 08/01/18 13:36 08/01/18 13:36 08/01/18 13:36 08/01/18 13:36 Blood Glucose* 175 HEIGHT 1.85M WEIGHT 82 KG BMI 24 NPO (# of Hours): 8 - HEENT Pupil (Motor): Pupils equal Mallampati: II Denture Type: Upper: Complete Oral Opening: Greater than 3 - Cardiac Rhythm: Regular - Pulmonary Breath Sounds: bilateral Clear Respiratory Effort: Symmetrical - Additional Findings Active Medications Aspirin (Aspirin) 81 mg PO DAILY [facility] Stop: 01/31/19 09:01 Last Admin: 08/01/18 08:45 Dose: 81 mg Atorvastatin Calcium (Lipitor) 80 mg PO HS [facility] Stop: 01/30/19 21:01 Last Admin: 07/31/18 20:24 Dose: 80 mg Carvedilol (Coreg) 3.125 mg PO BIDWM [facility] PRN Reason: Protocol Stop: 01/30/19 17:19 Last Admin: 08/01/18 08:42 Dose: 3.125 mg Clopidogrel Bisulfate (Plavix) 75 mg PO DAILY [facility] Stop: 01/31/19 09:01 Last Admin: 08/01/18 09:46 Dose: 75 mg Dextrose/Water (Dextrose 50% (Syg)) 25 ml IVP AD PRN PRN Reason: Hypoglycemia Stop: 01/31/19 10:12 Glucagon (Glucagen) 1 mg IM ONCE PRN PRN Reason: Hypoglycemia Stop: 01/31/19 10:12 Glucose (Gluctose) 15 gm PO ONCE PRN PRN Reason: Hypoglycemia Stop: 01/31/19 10:12 Glucose (Gluctose) 30 gm PO ONCE PRN PRN Reason: Hypoglycemia Stop: 01/31/19 10:12 Dextrose (Dextrose 5%) 1,000 mls @ 100 mls/hr IVC .Q10H PRN PRN Reason: HYPOGLYCEMIA Stop: 01/31/19 10:12 Insulin Detemir (Levemir) 20 unit SQ HS [facility] Stop: 01/30/19 21:01 Last Admin: 07/31/18 22:06 Dose: 20 unit Insulin Human Lispro (Humalog) 0 units SQ Q6HR YANA PRN Reason: Protocol Stop: 01/31/19 12:01 Last Admin: 08/01/18 12:11 Dose: 2 units Lisinopril (Zestril) 2.5 mg PO DAILY YANA PRN Reason: Protocol Stop: 01/30/19 17:31 Last Admin: 08/01/18 08:44 Dose: 2.5 mg Naloxone HCl (Narcan) 0.4 mg IVP Q2MIN PRN PRN Reason: SEE COMMENTS Stop: 01/30/19 16:12 Nitroglycerin (Nitroglycerin) 0.4 mg SL Q5MIN PRN PRN Reason: Chest Pain Stop: 01/30/19 11:32 Last Admin: 07/31/18 12:00 Dose: 0.4 mg Ondansetron HCl (Zofran) 4 mg IVP Q6HR PRN; Protocol PRN Reason: Nausea And Vomiting Stop: 01/30/19 21:01 Last Admin: 08/01/18 08:51 Dose: 4 mg Pantoprazole Sodium (Protonix) 40 mg IVP Q12HR YANA Stop: 01/30/19 18:01 Last Admin: 08/01/18 06:08 Dose: Not Given Anesthesia Assess/Plan ASA Score: 4 Modified Dola Scale for Level of Consciousness: Cooperative, oriented, and tranquil Anesthetic Plan: MAC Monitoring Plan: Standard Monitors Recovery Plan: Other
--- NOTE | 2018-08-01 14:08 | Anesthesia Evaluation Post Op ---
Date of Encounter: 08/01/18 Time of Encounter: 14:07 - Vital Signs Vital Signs: Vital Signs Vital Signs Assessment Start: 07/31/18 09:37 Freq: Status: Active Protocol: Activity Type Activity Date Activity User E-Sign Co-Sign Detail Recorded Client Recorded Date Recorded By [employer] Drape 07/31/18 09:37 System [id number] 07/31/18 09:37 System Document 07/31/18 09:46 MED [id number] 07/31/18 09:51 MED 07/31/18 09:46 ED Vital Signs [Pain] -Pain Reported Pain Reported -Pain Scale 9 -Pain Description Burning [Blood Pressure] -Blood Pressure (mm Hg) 214/107 [Pulse] -Pulse Rate (beats/min) 80 [Respirations] -Respiratory Rate (breaths/min) 14 -Depth Normal -Effort Non-Labored [Oxygen Delivery] -Pulse Oximetry (%) 100 -Oxygen Delivery Room Air Vital Signs Assessment Start: 07/31/18 10:25 Freq: PROTOCOL Status: Active Protocol: Activity Type Activity Date Activity User E-Sign Co-Sign Detail Recorded Client Recorded Date Recorded By [employer] Drape 07/31/18 10:27 KATEY [id number] 07/31/18 10:27 GANGA DAEMON Document 07/31/18 10:56 MED [id number] 07/31/18 10:57 MED Document 07/31/18 12:01 MED [id number] 07/31/18 12:02 MED Document 07/31/18 12:21 MED [id number] 07/31/18 12:21 MED Document 07/31/18 14:13 MED [id number] 07/31/18 14:13 MED Document 07/31/18 17:22 MED [id number] 07/31/18 17:23 MED 07/31/18 07/31/18 07/31/18 10:56 12:01 12:21 ED Vital Signs [Pain] -Pain Reported Pain Reported Pain Reported Pain Reported -Pain Scale 8 6 4 -Pain Scale Used Standard (1-10) Standard (1-10) -Pain Description Burning Pressure Pressure -Pain Frequency Constant [Blood Pressure] -Blood Pressure (mm Hg) 203/95 196/72 197/89 [Pulse] -Pulse Rate (beats/min) 78 84 85 -Rhythm Regular [Respirations] -Respiratory Rate (breaths/min) 16 16 15 -Depth Normal Normal -Effort Non-Labored Non-Labored Non-Labored [Oxygen Delivery] -Pulse Oximetry (%) 100 98 99 -Oxygen Delivery Room Air Room Air Room Air 07/31/18 07/31/18 14:13 17:22 ED Vital Signs [Pain] -Pain Reported Pain Reported No Pain Reported -Pain Scale 4 0 -Pain Scale Used Standard (1-10) -Pain Description Pressure -Pain Frequency [Blood Pressure] -Blood Pressure (mm Hg) 188/88 188/88 [Pulse] -Pulse Rate (beats/min) 78 79 -Rhythm [Respirations] -Respiratory Rate (breaths/min) 15 15 -Depth -Effort Non-Labored Non-Labored [Oxygen Delivery] -Pulse Oximetry (%) 98 98 -Oxygen Delivery Room Air Room Air Vital Signs Assessment Start: 07/31/18 16:11 Freq: Q4H Status: Active Protocol: Activity Type Activity Date Activity User E-Sign Co-Sign Detail Recorded Client Recorded Date Recorded By Bow [employer] Drape 07/31/18 16:41 ZPM [id number] 07/31/18 16:41 BKG DAEMON Document 07/31/18 23:31 [facility] [id number] 07/31/18 23:34 [facility] 07/31/18 23:31 Vital Signs with MEWS [Temperature] -Temperature (97.6 F-99.6 F) 97.7 F -Temperature Source Oral [Pulse] -Pulse Rate (beats/min) 65 [Respirations] -Respiratory Rate (breaths/min) 16 -Pulse Oximetry (%) 94 -Oxygen Delivery Method Room Air [Blood Pressure] -Blood Pressure (mm Hg) 97/47 -Blood Pressure Location Right Arm -Source Automatic Cuff -Position Left Lateral Vital Signs Assessment Start: 07/31/18 17:39 Freq: Q4H Status: Active Protocol: Activity Type Activity Date Activity User E-Sign Co-Sign Detail Recorded Client Recorded Date Recorded By [employer] Drape 07/31/18 17:39 [id number] 07/31/18 17:39 [id number] Document 07/31/18 18:46 [facility] [id number] 07/31/18 18:53 [facility] Document 08/01/18 03:22 [id number] 08/01/18 03:24 [facility] Document 08/01/18 06:40 [facility] [id number] 08/01/18 06:40 [facility]H Document 08/01/18 10:31 [facility]H [id number] 08/01/18 10:32 BEH 07/31/18 08/01/18 08/01/18 18:46 03:22 06:40 Vital Signs with MEWS [Temperature] -Temperature (97.6 F-99.6 F) 97.7 F 97.7 F 98.0 F -Temperature Source Axillary Oral Oral [Pulse] -Pulse Rate (beats/min) 76 62 65 [Respirations] -Respiratory Rate (breaths/min) 16 15 14 -Pulse Oximetry (%) 94 94 99 -Oxygen Delivery Method Room Air Room Air Room Air [Blood Pressure] -Blood Pressure (mm Hg) 133/77 96/47 127/69 -Blood Pressure Location Left Arm Right Arm Right Arm -Source Automatic Cuff Automatic Cuff Automatic Cuff -Position HOB Elevated Left Lateral HOB Elevated [MEWS Score] -Neuro Status *recalled from last Alert documentation -MEWS Score 0 08/01/18 10:31 Vital Signs with MEWS [Temperature] -Temperature (97.6 F-99.6 F) 97.8 F -Temperature Source Oral [Pulse] -Pulse Rate (beats/min) 72 [Respirations] -Respiratory Rate (breaths/min) 14 -Pulse Oximetry (%) 94 -Oxygen Delivery Method Room Air [Blood Pressure] -Blood Pressure (mm Hg) 191/89 -Blood Pressure Location Right Arm -Source Automatic Cuff -Position HOB Elevated [MEWS Score] -Neuro Status *recalled from last Alert documentation -MEWS Score 0 Temp Pulse Resp BP Pulse Ox 08/01/18 13:36 98.2 F 75 18 196/91 100 08/01/18 10:31 97.8 F 72 14 191/89 94 08/01/18 06:40 98.0 F 65 14 127/69 99 08/01/18 03:22 97.7 F 62 15 96/47 94 07/31/18 23:31 97.7 F 65 16 97/47 94 07/31/18 18:46 97.7 F 76 16 133/77 94 07/31/18 17:22 79 15 188/88 98 07/31/18 14:13 78 15 188/88 98 07/31/18 12:21 85 15 197/89 99 07/31/18 12:01 84 16 196/72 98 07/31/18 10:56 78 16 203/95 100 07/31/18 09:46 80 14 214/107 100 07/31/18 09:34 97.6 F 84 20 213/104 99 - Lungs Lungs: Clear Ascult./Percussion - Airway Airway: Non-obstructed - Cardiovascular Regular Rate - Mental Status Mental Status: Alert & Oriented, Answers Appropriately - Pain Pain Scale: 0 - Nausea Vomiting Nausea Vomiting: Not Present - Discharge PostOp Status: Transfer Patient to floor
[2018-08-01] MEDS ORDERED: *HR* Promethazine 25 MG/ML VIAL IM ONE (18:53)
[2018-08-01] MEDS ORDERED: *HR* Promethazine 25 MG/ML VIAL IV ONE (18:53)
[2018-08-01] MEDS ORDERED: *HR* Promethazine 25 MG/ML VIAL ONE (18:55)
[2018-08-01] MEDS ORDERED: Pantoprazole 40 MG VIAL IVP ONE (19:29)
[2018-08-01] MEDS: Insulin DETEMIR 100 UNIT/ML X5UNITS SQ SCH (20:48)
[2018-08-01] MEDS ORDERED: Acetaminophen 325 MG TABLET PO PRN (20:53)
[2018-08-02] MEDS: Ondansetron 4 MG/2 ML VIAL IVP PRN (00:06)
[2018-08-02] MEDS: Insulin LISPRO 300 UNITS/3 ML VIAL SQ SCH ×5 (00:47→22:03)
[2018-08-02] MEDS ORDERED: hydrALAZINE 10 MG TABLET PO PRN (03:10)
[2018-08-02] MEDS ORDERED: Ondansetron 4 MG/2 ML VIAL IVP ONE (05:19)
[2018-08-02 07:10] LABS: Hematocrit 43.6 % (37.5-50.1); Mean Corpuscular HGB Conc 35.6 g/dL (31.6-35.5); Mean Corpuscular Hemoglobin 31.6 pg (28.0-33.3); Mean Corpuscular Volume 88.8 fL (83.0-100.0); Mean Platelet Volume 11.8 fL (9.4-12.4); Platelet Count 177 K/mcL (140-400); Red Blood Count 4.91 M/mcL (4.19-5.50); Red Cell Distribution Width 13.4 % (11.5-14.5)
[2018-08-02 07:15] LABS: INR 1.2
[2018-08-02 07:29] LABS: BUN/Creatinine Ratio 18 (6-26); Blood Urea Nitrogen 15 mg/dL (6-20); Calcium 9.1 mg/dL (8.6-10.3); Carbon Dioxide 23 mEq/L (23-29); Chloride 101 mEq/L (98-107); Glucose 224 mg/dL (70-105); Osmolality,Calculated 290 (280-300); Potassium 3.5 mEq/L (3.5-5.1); Sodium 136 mEq/L (136-145); eGFR For Non-African Americans > 60 (> 60)
[2018-08-02 07:43] LABS: Hemoglobin 15.5 g/dL (12.9-16.9)
[2018-08-02] MEDS: Aspirin 81 MG TAB.CHEW PO SCH (08:06)
[2018-08-02] MEDS ORDERED: OXYCODONE Oral CONC 10 MG/0.5 ML ORAL.SYG SL PRN (09:56)
[2018-08-02 10:17] LABS: Amylase 29 Units/L (29-103); Lipase 13 Units/L (11-82)
[2018-08-02] MEDS ORDERED: 0.9 % Sodium Chloride 1,000 ML ONE (11:52)
[2018-08-02] MEDS ORDERED: 0.9 % Sodium Chloride 1,000 ML IVC SCH (12:00)
--- NOTE | 2018-08-02 17:01 | Internal Med Progress Note ---
Hospitalist Progress Note - Encounter Date of Encounter: 08/02/18 Time of Encounter: 08:00 - Subjective Interval History: patient reports that his nausea has mildly improved from yesterday does not have any appetite denies vomiting and has not have a BM in 4 days. denies abdominal pain but does report burning epigastric pain denies fever, chills, N/V/D, chest pain, SOB, palpitations - Exam Vitals: Temp Pulse Resp BP Pulse Ox 98.2 F 75 15 155/78 98 08/02/18 16:30 08/02/18 16:30 08/02/18 16:30 08/02/18 16:30 08/02/18 16:30 Exam: General: Patient is alert, oriented, no acute distress, Head: atraumatic, normocephalic, Eye: normal appearance, PERRL, no scleral icterus, no conjunctival injection ENT: mucous membranes moist, normal external ear exam Neck: normal inspection, trachea midline, full ROM, no carotid bruits Chest: normal inspection, symmetric chest rise Respiratory: Good respiratory effort. Bilateral breath sounds are clear without wheezing, crackles, or rhonchi. Cardiovascular: Regular rate and rhythm. s1 and s2 No clicks, rubs, gallops, or murmors. Abdomen: Bowel sounds present normoactive x-4 quadrants. Abdomen is soft, nondistended. no Epigastric tenderness. No guarding or rebound. No organomegaly noted, musculoskeletal: Spontaneously moving all extremities. no edema, no calf tenderness Skin: warm, dry, intact. Neuro: Alert and oriented x4. Sensation light touch intact. Cranial nerves 2- 12 is intact. Not aphasic, gait is steady, rapid hand movements intact, finger- to-nose intact, Psych: Patient's affect is normal - Assessment and Plan (1) Intractable nausea and vomiting Current Visit: Yes Status: Acute Assessment and Plan: will continue with zofran and phenegran he had one episode of non- bloody vomiting on 08/02/18 was unable to tolerate diet on 08/01/18 carafate QID - for epigastric burning amylase and lipase WNL KUB no signs of obstruction suppository PRN for constipation will increase his diet as tolerated ( start with clear liquids tonight) (2) Hematemesis Current Visit: Yes Status: Acute Assessment and Plan: Secondary to esophagitis s/p endoscopy on 08/01/18 GI recommendations appreciated IV Protonix carafate 1gm PO QID Fecal occult - pending Hemoglobin trended down from 15.7-12.4 back to 15.5 Vital signs remained stable Zofran q6 PRN. Type and screen Transfuse less than 8 endoscopy on 08/01/18- esophagitis Procedures: Colonoscopy 09/10/2010 Dr. Rodriguez: Serrated adenoma in proximal transverse colon, sessile adenomatous in transvers colon, tubular adenoma in descending colon, hyperplastic polyp in rectum. (3) Elevated troponin Current Visit: Yes Status: Acute Assessment and Plan: Most likely secondary to supply versus demand mismatch in setting of coronary artery disease Mildly elevated at 0.05 and 0.04 on admission subsequent troponins were less than 0.03 He does not have active chest pain EKG on 07/31 shows sinus rhythm with PVCs no acute ST-T abnormalities On aspirin and Plavix Continue cardiac monitoring (4) Diabetes mellitus Current Visit: No Status: Chronic Assessment and Plan: Accu check ACHS. Continue home medications. (5) Hypertension Current Visit: Yes Status: Chronic Assessment and Plan: . Was restarted on home medications, beta cain and holland We will continue to follow vital signs - Time Spent with Patient Total time spent is greater than 50% in coordination of care (as documented) at patient's floor/unit and/or counseling patient: Internal Medicine: Result - Labs CBC & Chem 7: 08/02/18 06:23 08/02/18 06:23 Labs: Short CBC 08/02/18 Range/Units 06:23 WBC 9.5 (4.3-11.1) K/mcL Hgb 15.5 D (12.9-16.9) g/dL Hct 43.6 (37.5-50.1) % Plt Count 177 (140-400) K/mcL BMP 08/02/18 06:23 Sodium 136 Potassium 3.5 Chloride 101 Carbon Dioxide 23 BUN 15 Creatinine 0.82 Glucose 224 H Calcium 9.1 - ABG Interpretation ABG results: PT/INR, D-dimer PT 13.0 Seconds (9.4-12.1) H 08/02/18 06:23 - Impressions Impressions KUB X-Ray 08/02/18 10:24 IMPRESSION: Nonobstructive bowel gas pattern. D/ / Mendez Read MD / Mendez Read MD Interpreting Provider: Mendez Read MD - VTE Documentation of Mechanical Device: Intermittent pneumatic compression device Consult Discharge Plan - Plan Referrals: Anny Velez MD [Primary Care Provider] - 08/07/18 10:45 am Ale Dupree MD [Partnered Physician] - (Web request entered. Office will call patient with date and time of appt. 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
[2018-08-02] MEDS: Sucralfate 1 GM TABLET PO SCH (21:31)
[2018-08-02] MEDS: Insulin DETEMIR 100 UNIT/ML X5UNITS SQ SCH (22:04)
[2018-08-03] MEDS: *HR* Promethazine 25 MG/ML VIAL IVP PRN ×2 (02:53→10:37)
[2018-08-03 06:31] LABS: Hematocrit 41.9 % (37.5-50.1); Hemoglobin 14.6 g/dL (12.9-16.9); Mean Corpuscular HGB Conc 34.8 g/dL (31.6-35.5); Mean Corpuscular Hemoglobin 30.9 pg (28.0-33.3); Mean Corpuscular Volume 88.6 fL (83.0-100.0); Mean Platelet Volume 11.4 fL (9.4-12.4); Platelet Count 168 K/mcL (140-400); Red Blood Count 4.73 M/mcL (4.19-5.50); Red Cell Distribution Width 13.2 % (11.5-14.5)
[2018-08-03 06:52] LABS: BUN/Creatinine Ratio 22 (6-26); Blood Urea Nitrogen 20 mg/dL (6-20); Calcium 9.1 mg/dL (8.6-10.3); Carbon Dioxide 25 mEq/L (23-29); Chloride 103 mEq/L (98-107); Glucose 160 mg/dL (70-105); Osmolality,Calculated 288 (280-300); Potassium 3.5 mEq/L (3.5-5.1); Sodium 136 mEq/L (136-145); eGFR For Non-African Americans > 60 (> 60)
[2018-08-03] MEDS: Ondansetron 4 MG/2 ML VIAL IVP PRN (07:59)
[2018-08-03] MEDS ORDERED: Bisacodyl 10 MG RECTAL SUPPOSITORY RC PRN (08:07)
--- NOTE | 2018-08-03 12:33 | Internal Med Progress Note ---
Hospitalist Progress Note - Encounter Date of Encounter: 08/03/18 Time of Encounter: 12:25 - Subjective Interval History: patient reports that his nausea has mildly improved, however still symptomatic does not have any appetite, had one popsicle yesterday but felt nauseated denies vomiting and has not have a BM in 5 days. ( reports that its due to him not being able to eat) denies abdominal pain but does report burning epigastric pain denies fever, chills, N/V/D, chest pain, SOB, palpitations - Exam Vitals: Temp Pulse Resp BP Pulse Ox 98.1 F 82 18 177/91 99 08/03/18 10:23 08/03/18 10:23 08/03/18 10:23 08/03/18 10:23 08/03/18 10:23 Exam: General: Patient is alert, oriented, no acute distress, Head: atraumatic, normocephalic, Eye: normal appearance, PERRL, no scleral icterus, no conjunctival injection ENT: mucous membranes moist, normal external ear exam Neck: normal inspection, trachea midline, full ROM, no carotid bruits Chest: normal inspection, symmetric chest rise Respiratory: Good respiratory effort. Bilateral breath sounds are clear without wheezing, crackles, or rhonchi. Cardiovascular: Regular rate and rhythm. s1 and s2 No clicks, rubs, gallops, or murmors. Abdomen: Bowel sounds present normoactive x-4 quadrants. Abdomen is soft, nondistended. no Epigastric tenderness. No guarding or rebound. No organomegaly noted, musculoskeletal: Spontaneously moving all extremities. no edema, no calf tenderness Skin: warm, dry, intact. Neuro: Alert and oriented x4. Sensation light touch intact. Cranial nerves 2- 12 is intact. Not aphasic, gait is steady, rapid hand movements intact, finger- to-nose intact, Psych: Patient's affect is normal - Assessment and Plan (1) Intractable nausea and vomiting Current Visit: Yes Status: Acute Assessment and Plan: he continues to complain of epigastric burning nausea and non-bloody vomiting - etiology unknown ?diabetic gastroparesis he denies CP, SOb or palpitations started reglan on 08/03/16- discontinue if signs of AMS has no appetite, had one popsicle yesterday but continued to have nausea GI cocktail added Q8H as per GI recommendations ( i spoke to Dr. comer on 08/03/18) carafate QID - for epigastric burning amylase and lipase WNL KUB no signs of obstruction CXR unremarkable will send troponin as he has had significant history of CAD - if elevated will consult cardiology A1c in AM suppository PRN for constipation continue clear liquid diet and advance as tolerated (2) Hematemesis Current Visit: Yes Status: Acute Assessment and Plan: Secondary to esophagitis s/p endoscopy on 08/01/18 GI recommendations appreciated IV Protonix carafate 1gm PO QID Fecal occult - pending Hemoglobin trended down from 15.7-12.4 back to 15.5 ad remains stable Vital signs remained stable reglan TID Transfuse less than 8 endoscopy on 08/01/18- esophagitis Procedures: Colonoscopy 09/10/2010 Dr. Rodriguez: Serrated adenoma in proximal transverse colon, sessile adenomatous in transvers colon, tubular adenoma in descending colon, hyperplastic polyp in rectum. (3) Elevated troponin Current Visit: Yes Status: Acute Assessment and Plan: Most likely secondary to supply versus demand mismatch in setting of coronary artery disease Mildly elevated at 0.05 and 0.04 on admission subsequent troponins were less than 0.03 He does not have active chest pain EKG on 07/31 shows sinus rhythm with PVCs no acute ST-T abnormalities On aspirin and Plavix will send 1 troponin today CXR unremarkable EKG ordered 08/03/18 Continue cardiac monitoring (4) Diabetes mellitus Current Visit: No Status: Chronic Assessment and Plan: Accu check ACHS. Continue home medications. (5) Hypertension Current Visit: Yes Status: Chronic Assessment and Plan: . uncontrolled increased coreg to 6.25 EKG ordered We will continue to follow vital signs - Time Spent with Patient Total time spent is greater than 50% in coordination of care (as documented) at patient's floor/unit and/or counseling patient: Internal Medicine: Result - Labs CBC & Chem 7: 08/03/18 06:08 08/03/18 06:08 Labs: Short CBC 08/03/18 Range/Units 06:08 WBC 8.8 (4.3-11.1) K/mcL Hgb 14.6 (12.9-16.9) g/dL Hct 41.9 (37.5-50.1) % Plt Count 168 (140-400) K/mcL BMP 08/03/18 06:08 Sodium 136 Potassium 3.5 Chloride 103 Carbon Dioxide 25 BUN 20 Creatinine 0.90 Glucose 160 H Calcium 9.1 - ABG Interpretation ABG results: PT/INR, D-dimer PT 13.0 Seconds (9.4-12.1) H 08/02/18 06:23 - Impressions Impressions Chest X-Ray 08/03/18 10:28 IMPRESSION: 1. No acute cardiopulmonary disease. D/ 08/03/2018 11:29:26 Elsa Austin MD / shonna Interpreting Provider: Elsa Austin MD - VTE Documentation of Mechanical Device: Intermittent pneumatic compression device Consult Discharge Plan - Plan Referrals: Anny Velez MD [Primary Care Provider] - 08/07/18 10:45 am Ale Comer MD [Partnered Physician] - (Web request entered. Office will call patient with date and time of appt. 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
[2018-08-03] MEDS: Sucralfate 1 GM TABLET PO SCH ×4 (12:45→20:40)
[2018-08-03] MEDS: GI Cocktail 40 ML EACH PO PRN ×2 (12:45→20:50)
[2018-08-03] MEDS: Aspirin 81 MG TAB.CHEW PO SCH (12:46)
[2018-08-03] MEDS: Insulin LISPRO 300 UNITS/3 ML VIAL SQ SCH ×4 (12:46→21:42)
--- NOTE | 2018-08-03 13:46 | Cardiology Consult Note ---
<CasimiroWernerSugar R - Last Filed: 08/03/18 14:04> Date of Encounter: 08/03/18 Time of Encounter: 14:02 Assessment and Plan (1) Burning chest pain Current Visit: Yes Status: Acute (2) Elevated troponin Current Visit: Yes Status: Acute (3) Hematemesis Current Visit: Yes Status: Acute Qualifiers: Nausea presence: with nausea Qualified Code(s): K92.0 - Hematemesis (4) ST elevation myocardial infarction (STEMI) Current Visit: No Status: Resolved Qualifiers: Involved coronary artery: LAD coronary artery Qualified Code(s): I21.02 - ST elevation (STEMI) myocardial infarction involving left anterior descending coronary artery Discussion w patient/family: The patient was evaluated for burning chest pain and hematemesis by GI and was found to have grade A esophagitis without evidence of a current bleed. As the patient had his OR February 20, he has not yet hit the 6 month shar for treatment with ASA and plavix. We would recommend continuing therapy with these medications at least until the 6 month shar, especially since he is no longer currently bleeding. The patient's mild elevation of troponin (0.05, 0.04) is likely secondary to demand ischemia as repeat EKG was unchanged. Pt is ok to continue medical management for his previous OR as well as his current esophagitis and follow up outpatient. The assessment and plan as outlined above was discussed with the patient and/or family members who expressed understanding and agreement. All questions were answered. Thank you for involving us in the care of your patient. Please call with any questions. History of Present Illness Consult date: 08/03/18 Requesting physician: Maricarmen Diop Consult reason: elevated troponin, post STEMI in january Chief complaint: vomiting blood History of present illness: Mr. Yin is a 57 year old male with PMHx of a STEMI with stent placement in the LAD February 20 of this year, currently on aspirin and plavix, who presented to the ED 5 days ago with worsening chest pain and vomiting. He had an EKG then which showed abnormal changes but his initial troponin was negative. He left AMA , but returned the following day due to the pain and vomiting. He had another normal troponin at this time and his EKG was unchanged from the previous day. He then had 2 episodes of coffee ground emesis while in the ED and was admitted for GI workup. GI did an endoscopy yesterday which showed grade A esophagitis without current bleeding. He has had two mildly elevated troponins during his admission but his chest pain has now resolved. He states he missed a few doses of his aspirin and plavix due to his nausea and vomiting. Besides his current nausea, he has no complaints at this time. He denies fever, cough, bloody stools and shortness of breath. Past Med Surg Social Fam HX - Past Medical History Medical history: coronary artery disease, diabetes Psychiatric history: no psych history - Past Surgical History Surgical History: cataract, other Additional surgical history: perirectal abscess - Social History Smoking Status: Current every day smoker Smokeless Tobacco Status: No Alcohol use: none Drug use: none - Family History Father Living Status: Age at : 85 Cause of : dementia Hx Family Cardiac Disorders: Yes Hx Family Respiratory Disorders: No Hx Family Cancer: Yes Hx Family GI Disorders: Yes Hx Family Genitourinary Disorders: No Hx Family Endocrine Disorder: No Hx Family Musculoskeletal Disorders: No Hx Family Neuromuscular Disorders: No Hx Family Neurologic Disorders: No Hx Family HEENT Disorders: No Hx Family Autoimmune Disorders: No Hx Family Reproductive Disorders: No Hx Family Psychosocial Disorders: No Medications and Allergies Insulin DETEMIR [Levemir Flextouch] 20 - 30 unit SQ HS 02/20/18 [History] Metformin HCl [Glucophage] 1,000 mg PO BID 02/20/18 [History] SitaGLIPtin [Januvia] 100 mg PO DAILY 02/20/18 [History] Aspirin 81 mg PO DAILY #30 tab.chew 02/22/18 [Rx] Atorvastatin [Lipitor] 80 mg PO HS #30 tablet 02/22/18 [Rx] Carvedilol [Coreg] 3.125 mg PO BIDWM #60 tablet 02/22/18 [Rx] Clopidogrel [Plavix] 75 mg PO DAILY #30 tablet 02/22/18 [Rx] Lisinopril [Zestril] 2.5 mg PO DAILY #30 tablet 02/22/18 [Rx] Nitroglycerin 0.4 mg SL Q5MIN PRN #25 tab.subl 02/22/18 [Rx] 3 Allergy/AdvReac Type Severity Reaction Status Date / Time No Known Allergies Allergy Verified 02/20/18 18:52 All Systems Review: The remainder of the systems were reviewed and are negative - Constitutional Constitutional: no fatigue, no fever(s), no headache(s) - EENT Nose, mouth and throat: no dysphagia, no epistaxis, no sore throat - Cardiovascular Cardiovascular: chest pain at rest (burning epigastric pain), no dyspnea at rest , no dyspnea on exertion, no leg edema, no palpitations - Respiratory Respiratory: no cough, no dyspnea, no hemoptysis, no wheezing - Gastrointestinal Gastrointestinal: hematemesis, nausea, no constipation, no diarrhea, no dysphagia - Genitourinary Genitourinary: no dysuria, no hematuria - Musculoskeletal Musculoskeletal: no abnormal gait, no muscle cramps, no muscle weakness - Integumentary Integumentary: no erythema, no rash - Neurological Neurological: no dizziness, no syncope - Psychiatric Psychiatric: no anxiety, no depression Physical Examination Vital Signs, Last 4 Hours Temp Pulse Resp BP Pulse Ox 08/03/18 10:23 98.1 F 82 18 177/91 99 General: Conversant, No Apparent Distress HEENT: Atraumatic, Normocephaly, Mucus Membranes Moist Neck: No JVD, Normal carotid pulses Cardiac: Reg Rate and Rhythm, Normal S1 and S2, No Murmur Lungs: Normal Breath Sounds, No Wheeze, Rales, Rhonchi Neuro: Alert and responsive, No focal deficits noted Abdomen: Soft Skin: No rashes noted on visualized skin Musculoskeletal: No Chest Wall Tenderness Extremities: No Cyanosis, No Edema, Normal Pulses Results 08/03/18 06:08 08/03/18 06:08 Lab Results 08/03/18 08/03/18 08/03/18 06:08 06:08 11:25 WBC 8.8 Hgb 14.6 Hct 41.9 Plt Count 168 Sodium 136 Potassium 3.5 Chloride 103 Carbon Dioxide 25 BUN 20 Creatinine 0.90 Glucose 160 H Calcium 9.1 Troponin I 0.04 H* Consult Discharge Plan - Plan Referrals: Anny Velez MD [Primary Care Provider] - 08/07/18 10:45 am Ale Dupree MD [Partnered Physician] - (Web request entered. Office will call patient with date and time of appt. thank you) <Chance Sawyer - Last Filed: 08/03/18 16:17> Date of Encounter: 09/07/18 - Attending Attestation I examined this patient and my medical decision-making was reviewed with the Resident Physician. I agree with the documented findings, disposition and treatment plan as described except to the extent set forth below. Atypical chest pain, borderline elevated trop. Doubt ACS. Would continue current meds and fu with cardio as outpt. Assessment and Plan Discussion w patient/family: The assessment and plan as outlined above was discussed with the patient and/or family members who expressed understanding and agreement. All questions were answered. Thank you for involving us in the care of your patient. Please call with any questions. History of Present Illness History of present illness: Mr. Yin is a 57 year old male All Systems Review: The remainder of the systems were reviewed and are negative Results 08/03/18 06:08 08/03/18 06:08 Lab Results 08/03/18 08/03/18 08/03/18 06:08 06:08 11:25 WBC 8.8 Hgb 14.6 Hct 41.9 Plt Count 168 Sodium 136 Potassium 3.5 Chloride 103 Carbon Dioxide 25 BUN 20 Creatinine 0.90 Glucose 160 H Calcium 9.1 Troponin I 0.04 H*
[2018-08-03] MEDS: Metoclopramide 20 MG in 0.9 % Sodium Chloride 50 ML IVPB SCH ×2 (14:14→20:44)
[2018-08-03] MEDS: Insulin DETEMIR 100 UNIT/ML X5UNITS SQ SCH (20:40)
[2018-08-04 05:09] LABS: Hematocrit 45.4 % (37.5-50.1); Hemoglobin 15.8 g/dL (12.9-16.9); Mean Corpuscular HGB Conc 34.8 g/dL (31.6-35.5); Mean Corpuscular Hemoglobin 31.2 pg (28.0-33.3); Mean Corpuscular Volume 89.5 fL (83.0-100.0); Mean Platelet Volume 11.4 fL (9.4-12.4); Platelet Count 188 K/mcL (140-400); Red Blood Count 5.07 M/mcL (4.19-5.50); Red Cell Distribution Width 13.2 % (11.5-14.5)
[2018-08-04 05:21] LABS: BUN/Creatinine Ratio 23 (6-26); Blood Urea Nitrogen 25 mg/dL (6-20); Carbon Dioxide 28 mEq/L (23-29); Chloride 103 mEq/L (98-107); Glucose 165 mg/dL (70-105); Osmolality,Calculated 296 (280-300); Potassium 3.5 mEq/L (3.5-5.1); Sodium 139 mEq/L (136-145); eGFR For Non-African Americans > 60 (> 60)
[2018-08-04] MEDS: Metoclopramide 20 MG in 0.9 % Sodium Chloride 50 ML IVPB SCH (05:34)
[2018-08-04 06:43] VITALS: BP 141/75
--- NOTE | 2018-08-04 08:33 | Discharge Summary ---
- NOTES TO OUTPATIENT PROVIDER Notes to Outpatient Provider: follow up with cardiology. follow up with GI. follow glucose levels and adjust diabetic medications. follow A1c levels. follow RITA logs and glucose logs and adjust medications Orders not resulted at time of discharge: Pending orders 08/04/18 04:50 Hgb A1C AM 0400 08/05/18 04:00 Basic Metabolic Panel AM 0400 Complete Blood Count w/o Diff [HEME] AM 0400 Date of Encounter: 08/04/18 Time of Encounter: 08:31 - Discharge Diagnosis (1) Hematemesis Priority: Primary Status: Acute Qualifiers: Nausea presence: with nausea Qualified Code(s): K92.0 - Hematemesis (2) Intractable nausea and vomiting Priority: Secondary Status: Acute Qualifiers: Vomiting type: unspecified Qualified Code(s): R11.2 - Nausea with vomiting , unspecified (3) Elevated troponin Priority: Secondary Status: Acute (4) Diabetes mellitus Priority: Secondary Status: Chronic Qualifiers: Diabetes mellitus type: type 2 Diabetes mellitus intermodal dispatcher insulin use: with penitentiary use Diabetes mellitus complication status: without complication Qualified Code(s): E11.9 - Type 2 diabetes mellitus without complications; Z79.4 - intermodal dispatcher (current) use of insulin (5) Hypertension Priority: Secondary Status: Chronic Qualifiers: Hypertension type: unspecified Qualified Code(s): I10 - Essential (primary ) hypertension Hospital course: Mr. Yin is a 57 year old male history significant for CAD with stent placement 4 months ago, diabetes, hypertension, and hyperlipidemia who presents for 5 day history of intermittent nausea and vomiting. Reports 2 episodes of hematemesis on the day of admission. As per patient's his emesis was coffee-ground in consistency. He was seen in the emergency department the day before admission and had signed out AMA. During that presentation CT abdomen/ pelvis were performed in addition to troponins which were unremarkable. However he resented to the emergency department due to poor oral intake, nausea and vomiting along with hematemesis and was admitted for upper GI bleed. While in the ED troponins were mildly elevated at 0.05 Amanda trended down to 0.04 and 0.03. Hemoglobin on admission had trended down from 15.7-12.4. He remained hemodynamically stable, was started on Protonix IV and Zofran was provided for nausea and vomiting which resolved. He was kept nothing by mouth and GI was consulted. Endoscopy was performed on 08/01 which was consistent with LA grade A reflux esophagitis. Normal stomach, which was biopsied. And normal examined duodenum. It was recommended for him to start daily PPI. Post endoscopy diet was resumed however patient continued to have nausea and nonbloody, bile- stained vomiting. She was started on IV fluids and was kept nothing by mouth, promethazine, Carafate was given in addition to Zofran with minimal relief of his symptoms. He continued to have burning epigastric pain and was unable to tolerate by mouth diet. He reported no bowel movements for 4 days, KUB was performed which showed no significant findings. He continued to have burning epigastric pain. Chest x-ray was performed which was not significant for any acute findings. Troponins were repeated and showed mild elevation at 0.04. EKG showed no significant changes. However due to his extensive cardiac history cardiology was consulted and recommended that the mild elevation of troponin is most likely secondary to demand ischemia. He was recommended to follow-up with cardiology as outpatient. GI was consulted over the phone who recommended a GI cocktail. Promethazine and Zofran were discontinued and he was given 1 dose of Reglan. His symptoms were resolved with the GI cocktail and 1 dose of Reglan, he was able to tolerate by mouth diet. stool occult was positive. His diet was increased and he did not have any more episodes of nausea or vomiting. He is to follow-up with GI as outpatient for outpatient colonoscopy. He is also to follow-up with cardiology as outpatient. He was counseled on smoking cessation. He was told to follow-up with his primary care for the results of his hemoglobin A1c. Blood pressures ranged between normal limits and at times were mildly elevated. He was told to follow- up with his primary care with his glucose logs and blood pressure logs for medication titration. He was counseled on importance of medication compliance KUB: IMPRESSION: Nonobstructive bowel gas pattern. CXR: IMPRESSION: 1. No acute cardiopulmonary disease. Ct A/P IMPRESSION: No findings to account for patient's pain. Appendix is normal. No renal or ureteral stone. Discharge discussed with: patient, nurse, property consultant Time spent discussing smoking cessation with patient: more than 10 minutes - Time Spent with Patient Total time spent providing and/or coordinating discharge services: Less than 30 minutes - Discharge Medications Prescriptions: GI Cocktail [Gi Cocktail] 40 ml PO Q8H PRN #14 each PRN Reason: Nausea And Vomiting Pantoprazole Sodium [Protonix] 40 mg PO DAILY #30 tablet. Home Medications: Insulin DETEMIR [Levemir Flextouch] 20 - 30 unit SQ HS 02/20/18 [History] Metformin HCl [Glucophage] 1,000 mg PO BID 02/20/18 [History] SitaGLIPtin [Januvia] 100 mg PO DAILY 02/20/18 [History] Aspirin 81 mg PO DAILY #30 tab.chew 02/22/18 [Rx] Atorvastatin [Lipitor] 80 mg PO HS #30 tablet 02/22/18 [Rx] Carvedilol [Coreg] 3.125 mg PO BIDWM #60 tablet 02/22/18 [Rx] Clopidogrel [Plavix] 75 mg PO DAILY #30 tablet 02/22/18 [Rx] Lisinopril [Zestril] 2.5 mg PO DAILY #30 tablet 02/22/18 [Rx] Nitroglycerin 0.4 mg SL Q5MIN PRN #25 tab.subl 02/22/18 [Rx] GI Cocktail [Gi Cocktail] 40 ml PO Q8H PRN #14 each 08/04/18 [Rx] Pantoprazole Sodium [Protonix] 40 mg PO DAILY #30 tablet. 08/04/18 [Rx] Allergies/Adverse Reactions: 3 Allergy/AdvReac Type Severity Reaction Status Date / Time No Known Allergies Allergy Verified 02/20/18 18:52 Date of admission: 07/31/18 16:14 Primary care physician: Anny Velez Consults: 07/31/18 17:46 Consult to Gastroenterology [CONS] Routine Consulting Provider: Gastroenter[facility] Reason for Consult: 2 episodes Hematemsis reported today. Intermittent nausea/vomiting since Monday. No vomiting since presentation to ER. Call Completed: No 08/03/18 12:37 Consult to Cardiology [CONS] Routine Comment: Consulting Provider: Cardiology [facility] Reason for Consult: elevated troponin, nasuea, burning pain, mildly elevated troponin, S/p STEMi in january on ASA and plavix Call Completed: No - Constitutional Vitals: Temp Pulse Resp BP Pulse Ox 97.9 F 90 16 141/75 94 08/04/18 06:41 09/08/18 06:41 08/04/18 06:41 08/04/18 06:41 08/04/18 06:41 Exam: General: Patient is alert, oriented, no acute distress, Head: atraumatic, normocephalic, Eye: normal appearance, PERRL, no scleral icterus, no conjunctival injection ENT: mucous membranes moist, normal external ear exam Neck: normal inspection, trachea midline, full ROM, no carotid bruits Chest: normal inspection, symmetric chest rise Respiratory: Good respiratory effort. Bilateral breath sounds are clear without wheezing, crackles, or rhonchi. Cardiovascular: Regular rate and rhythm. s1 and s2 No clicks, rubs, gallops, or murmors. Abdomen: Bowel sounds present normoactive x-4 quadrants. Abdomen is soft, nondistended. no Epigastric tenderness. No guarding or rebound. No organomegaly noted, musculoskeletal: Spontaneously moving all extremities. no edema, no calf tenderness Skin: warm, dry, intact. Neuro: Alert and oriented x4. Sensation light touch intact. Cranial nerves 2- 12 is intact. Not aphasic, gait is steady, rapid hand movements intact, finger- to-nose intact, Psych: Patient's affect is normal - Patient Status Disposition: Home, Self-Care Condition: Good Functional capacity at discharge: independent ambulation Overall status at discharge: patient is progressing back to baseline - Discharge Instructions Follow Up With: Anny Velez MD [Primary Care Provider] - 08/07/18 10:45 am Ale Dupree MD [Partnered Physician] - (Web request entered. Office will call patient with date and time of appt. thank you) - Diet and Activity Activity: increase activity as tolerated Diet: diabetic diet, low salt diet - VTE Documentation of Mechanical Device: Intermittent pneumatic compression device
[2018-08-04 08:51] LABS: Estimated Average Glucose 177 mg/dl; Hemoglobin A1C 7.8 %
--- NOTE | 2018-08-04 16:19 | Electrocardiograph Report ---
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
== END 2018-08-04 10:00 | disposition home or self-care (01) ==
LOC: EMEROOARM 09:30 → 3ANU 09:30 → SUATTDRO 16:14 → 3ANU 17:27
PROVIDERS: ADMIT Internal Medicine; ATTEND Internal Medicine
PROC: ENDOEBX (2018-08-01 14:00)